=== PATIENT | female | born 1970 | race Caucasian/White ===

== ENCOUNTER 2016-09-03 12:35 | Emergency (ER) | payer MEDICARE, MEDICAID ==
[2016-09-03] MEDS ORDERED: Butalb/Acetamin/Caff TAB* 1 TAB PO ONE (13:20)
--- NOTE | 2016-09-03 13:29 | ED ---
Headache - HPI Summary HPI Summary: Patient presents for delayed evaluation of shaking episodes during sleep and subsequent R sided headache. noticed that each time she takes a sleep aid , that the patient swings her arms and then wakes up asking what happened. This occurred three times last night for nearly 1 to 2 minutes each. Last night she took Tylenol PM, but this also occurs with Ambien. Denies any other medication changes, well before work yesterday, played video games before bed, and laid to sleep peacefully. Normal behavior now but with mild to moderate, throbbing R sided headache and body pain. No allev factors attempted for either. - History Of Current Complaint Chief Complaint: EDSeizure Stated Complaint: SEIZURES Time Seen by Provider: 09/03/16 13:09 Hx Obtained From: Patient, Family/[employer] - Hx Last Menstrual Period: 04/08/16 Onset/Duration: Gradual Onset Timing: Intermittent, Lasting:, Seconds - Allergies/Home Medications Allergies/Adverse Reactions: Allergies Allergy/AdvReac Type Severity Reaction Status Date / Time Morphine Allergy Severe Anaphylatic Verified 03/06/16 19:07 Shock Pioglitazone [From Actos] Allergy Severe Anaphylatic Verified 03/06/16 19:07 Shock Zolpidem [From Ambien] Allergy Severe See Comment Verified 03/06/16 19:07 Cinnamon Allergy Unknown Verified 03/06/16 19:07 Reaction Details Codeine AdvReac Intermediate Vomiting Verified 03/06/16 19:07 Oxycodone AdvReac Dizziness Verified 03/06/16 19:07 Home Medications: Home Medications Ipratropium [place] (Nasal) [Ipratropium [place]] 0.06 % BOTH NARES TID PRN [History Confirmed 09/03/16] Liraglutide (NF) [Victoza (NF)] 1.2 mg SUBCUT DAILY 09/03/16 [History Confirmed 09/03/16] Magnesium Oxide TAB* [MagOx 400 TAB*] 400 mg PO DAILY 09/03/16 [History Confirmed 09/03/16] Pregabalin CAP(*) [Lyrica CAP(*)] 25 mg PO TID MDD 75 mg 09/03/16 [History Confirmed 09/03/16] Topiramate TAB(*) [Topamax 100 MG(*)] 100 mg PO BID 09/03/16 [History Confirmed 09/03/16] PMH/Surg Hx/FS Hx/Imm Hx Endocrine/Hematology History: Reports: Hx Diabetes - TYPE 2 Denies: Hx Anticoagulant Therapy, Hx Thyroid Disease Cardiovascular History: Reports: Hx Angina, Hx Hypertension - R/T Denies: Hx Congestive Heart Failure, Hx Pacemaker/ICD Respiratory History: Reports: Hx Asthma, Hx Chronic Obstructive Pulmonary Disease (COPD), Hx Sleep Apnea GI History: Reports: Other GI Disorders - has had GI bleed d/t hemorrhoids Denies: Hx Ulcer History: Reports: Other Problems/Disorders - ovarian cysts Denies: Hx Dialysis, Hx Renal Disease Musculoskeletal History: Reports: Hx Back Problems, Other Musculoskeletal History - OBESITY Denies: Hx Arthritis, Hx Osteoporosis Sensory History: Denies: Hx Hearing Aid Neurological History: Reports: Hx Migraine, Hx Seizures, Other Neuro Impairments /Disorders - HEAD INJURY, CONCUSSION X 2 Denies: Hx Dementia, Hx Developmental Delay, Hx Headaches, Hx Nerve Disease, Hx Spinal Cord Injury, Hx Transient Ischemic Attacks (TIA) Psychiatric History: Reports: Hx Depression, Hx Inpatient Treatment, Hx Community Mental Health Tx, Hx Suicide Attempt Denies: Hx Eating Disorder, Hx Panic Disorder, Hx of Violent Episodes Against Others, Hx Substance Abuse - Surgical History Surgery Procedure, Year, and Place: tubal ligation Hx Anesthesia Reactions: No - Immunization History Date of Tetanus Vaccine: 2013 Date of Influenza Vaccine: Fall 2012 Infectious Disease History: No Infectious Disease History: Denies: Hx Clostridium Difficile, Hx Hepatitis, Hx Human Immunodeficiency Virus (HIV), Hx of Known/Suspected MRSA, Hx Shingles, Hx Tuberculosis, Hx Known/ Suspected VRE, Hx Known/Suspected VRSA, History Other Infectious Disease, Traveled Outside the [place] in Last 30 Days - Family History Known Family History: Positive: None, Hypertension, Other - cancer - Social History Alcohol Use: Occasionally Hx Substance Use: No Substance Use Type: Reports: None Substance Use Comment - Amount & Last Used: norco 5/325 q4h prn Hx Tobacco Use: Yes Smoking Status (MU): Former Smoker Type: Cigarettes Amount Used/How Often: 1/2 PPD for 10 years Have You Smoked in the Last Year: No Review of Systems Negative: Fever, Chills Negative: Photophobia, Blurred Vision Cardiovascular: Negative Negative: Palpitations, Chest Pain Respiratory: Negative Negative: Shortness Of Breath, Cough Positive: Headache. Negative: Weakness, Paresthesia, Numbness, Slurred Speech All Other Systems Reviewed And Are Negative: Yes Physical Exam Triage Information Reviewed: Yes Vital Signs On Initial Exam: Initial Vitals Temp Pulse Resp BP Pulse Ox 98.4 F 76 16 132/80 100 09/03/16 12:40 09/03/16 12:40 09/03/16 12:40 09/03/16 12:40 09/03/16 12:40 Vital Signs Reviewed: Yes Appearance: Positive: Well-Appearing, No Pain Distress, Well-Nourished Skin: Positive: Warm, Skin Color Reflects Adequate Perfusion, Dry Head/Face: Positive: Normal Head/Face Inspection. Negative: Temporal Artery Tenderness, TMJ Tenderness, Cephalohematoma Eyes: Positive: Normal, EOMI ENT: Positive: Normal ENT inspection, Hearing grossly normal, Pharynx normal Neck: Positive: Supple Respiratory/Lung Sounds: Positive: Clear to Auscultation, Breath Sounds Present Cardiovascular: Positive: Normal, RRR, Pulses are Symmetrical in both Upper and Lower Extremities Abdomen Description: Positive: Nontender, No Organomegaly, Soft Musculoskeletal: Positive: Normal, Strength/ROM Intact Neurological: Positive: Normal, Sensory/Motor Intact, Alert, Oriented to Person Place, Time, CN Intact II-III, Reflexes Intact, Normal Gait, Heel to Toe, Finger to Nose, Facial Symmetry, Speech Normal. Negative: Cerebellar Dysfunction, Facial Droop, Focal Deficit @, Slurred Speech, Ataxic Gait, Dysarthric Aphasia, Pronator Drift Present Diagnostics - Vital Signs Vital Signs Temp Pulse Resp BP Pulse Ox 09/03/16 12:40 98.4 F 76 16 132/80 100 - Laboratory Lab Statement: Any lab studies that have been ordered have been reviewed, and results considered in the medical decision making process. - EKG No standard instances Cardiac Rate: NL EKG Rhythm: Sinus Rhythm ST Segment: Normal Ectopy: None EKG Comparison: No Significant Change - HR 65, normal AR/QRS/QTC Headache Course/Dx - Diagnoses Differential Diagnosis/HQI/PQRI: Subdural Hematoma, Subarachnoid Hemorrhage, Tension Headache, Other - Primary concern for myoclonic jerking during sleep. EKG to eval for medication induced arrhythmia. CT for occult ICH. although she complains of pain, none reproduced with active ROM of limbs, palpation of head, neck, chest, back, abdomen, hip, legs. Fioricet for headache. Nontoxic appearing. Low concern for seizure disorder, but will refer to Neurology for outpatient evaluation if deemed necessary by PCP. Provider Diagnoses: Headache Discharge - Discharge Plan Condition: Stable Disposition: HOME Prescriptions: Butalb/Acetamin/Caff TAB* [Fioricet TAB*] 1 tab PO Q6H PRN #10 tab MDD 8 tablets PRN Reason: Headache Patient Education Materials: General Headache (ED) Referrals: Jennifer Dietrich MD [Primary Care Provider] - Brooke Julien MD [Medical Doctor] -
--- NOTE | 2016-09-03 14:56 | RAD ---
HISTORY: Headache, seizure COMPARISONS: May 20, 2016 TECHNIQUE: Multiple contiguous axial CT scans were obtained of the head without intravenous contrast. FINDINGS: HEMORRHAGE/INFARCT: There is no hemorrhage or acute infarct. MASSES/SHIFT: There is no mass or shift. EXTRA-AXIAL SPACES: There are no extra-axial fluid collections. SULCI AND VENTRICLES: The sulci and ventricles are normal in size and position for the patient's stated age. CEREBRUM: There are no focal parenchymal abnormalities. BRAINSTEM: There are no focal parenchymal abnormalities. CEREBELLUM: There are no focal parenchymal abnormalities. VESSELS: The vessels are grossly normal. PARANASAL SINUSES: The paranasal sinuses are clear. ORBITS: The orbits are unremarkable. BONES AND SOFT TISSUE: No bone or soft tissue abnormalities are noted. OTHER: None IMPRESSION: NO ACUTE INTRACRANIAL PATHOLOGY.
[2016-09-03 15:32] VITALS: BP 107/56
== END 2016-09-03 15:31 | disposition home or self-care (01) ==
LOC: ED 12:35
DX: R51 Headache (principal); Z87.891 Personal history of nicotine dependence
CPT/HCPCS: 70450; 93005; 99283; A9270-GY

== ENCOUNTER 2017-04-13 17:06 | Emergency (ER) | payer MEDICAID, MEDICARE ==
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
--- NOTE | 2017-04-13 19:18 | RAD ---
INDICATION: Right rib injury. COMPARISON: Comparison is made with a prior chest x-ray study from April 21, 2016. TECHNIQUE: 4 views of the right ribs and dual-energy PA views of the chest were obtained. FINDINGS: No fracture or significant focal osseous abnormality is seen. The heart is within normal limits in size. The lungs are clear. There is no evidence for pneumothorax or pleural effusion. IMPRESSION: NO EVIDENCE FOR FRACTURE.
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
== END 2017-04-13 20:01 | disposition home or self-care (01) ==
LOC: UCEAST 17:06
DX: S60.221A Contusion of right hand, initial encounter (principal); Z88.6 Allergy status to analgesic agent; S20.219A Contusion of unspecified front wall of thorax, initial encounter; W22.8XXA Striking against or struck by other objects, initial encounter; Y92.9 Unspecified place or not applicable
CPT/HCPCS: 99213; G0463

== ENCOUNTER → 2017-05-14 09:59 | Emergency (ER) | payer SELFPAY ==
[~2017-05-14 09:59] MED LIST: HYDROmorphone INJ* 1 MG/ML CARPUJECT SYRINGE IV SLOW PU ONE; Magnesium Sulfate 2 GM IV* 2 GM/50 ML BAG IVPB ONE; NS 0.9% 1000 ML* 1,000 ML IV ONE; Ondansetron INJ* 2 MG/ML VIAL IV ONE
[2017-05-14 10:04] VITALS: BP 134/79
[2017-05-14 11:01] LABS: Hematocrit 37 % (35-47); Hemoglobin 12.4 g/dl (12.0-16.0); Mean Corpuscular HGB Conc 34 g/dl (31-36); Mean Corpuscular Hemoglobin 26 pg (27-31); Mean Corpuscular Volume 78 fL (80-97); Mean Platelet Volume 7 um3 (7.4-10.4); Red Blood Count 4.68 10^6/ul (4.0-5.4); Red Cell Distribution Width 15 % (10.5-15); White Blood Count 7.5 10^3/ul (3.5-10.8)
[2017-05-14 11:19] LABS: Urine Bilirubin Negative (Negative); Urine Glucose Negative (Negative); Urine Nitrite Negative (Negative)
[2017-05-14 11:30] LABS: Albumin 3.8 g/dL (3.2-5.2); BUN/Creatinine Ratio 24.6 (8-20); C Reactive Protein 4.67 mg/L (< 5.00); Calcium 9.1 mg/dL (8.6-10.3); EGFR African American 127.3 (>60); Globulin 2.7 g/dL (2-4); Magnesium 1.8 mg/dL (1.9-2.7); Potassium 3.7 mmol/L (3.5-5.0); Total Bilirubin 0.3 mg/dL (0.2-1.0); Total Protein 6.5 g/dL (6.4-8.9)
--- NOTE | 2017-05-17 09:05 | ED ---
Progress - Progress Note Progress Note: Pt's stool cxs are neg for enteric pathogens and shiga toxins. No change in plan at this time. F/u as directed in d/c. Course/Dx - Diagnoses Provider Diagnoses: Abdominal pain
== END | disposition home or self-care (01) ==
LOC: ED 09:59
DX: R10.9 Unspecified abdominal pain (principal)
CPT/HCPCS: 36415; 80053; 81003; 82272; 83605; 83630; 83690; 83735; 83986; 85025; 86140; 87045; 87046; 87077; 87899; 96374; 96375; 99283; J1170; J2405; J3475

== ENCOUNTER 2017-06-02 11:31 | Emergency (ER) | payer MEDICARE ==
--- NOTE | 2017-06-02 12:48 | RAD ---
HISTORY: Neck pain COMPARISONS: None relevant TECHNIQUE: Multiple contiguous axial CT scans were obtained of the cervical spine without intravenous contrast, with coronal and sagittal multiplanar reformations. FINDINGS: BRAIN: The visualized brain is unremarkable CENTRAL CANAL: Evaluation of the central canal is limited on CT technique; however, there is no obvious canalicular mass or epidural hemorrhage. ALIGNMENT: There is straightening of the cervical lordosis. VERTEBRAL BODIES: The odontoid process is intact. The atlantoaxial intervals are symmetric. The vertebral bodies are normal in attenuation, without fracture. Incidentally noted is a dysraphic defect of the posterior arch of C1. There is mild multilevel anterolateral marginal osteophyte formation. JOINTS: There is multilevel uncovertebral and facet osteoarthritis. There is mild osteoarthritis of the atlantoaxial articulation. MUSCULATURE: Unremarkable INTERVERTEBRAL DISCS: There is diffuse loss of intervertebral disc height. AXIAL IMAGES: C2-C3: There is mild left neural foraminal narrowing. There is no osseous central canal stenosis. C3-C4: There is moderate right neural foraminal narrowing. There is no osseous central canal stenosis. C4-C5: There is no osseous neural foraminal narrowing or central canal stenosis. C5-C6: There is no osseous neural foraminal narrowing or central canal stenosis. C6-C7: There is no osseous neural foraminal narrowing or central canal stenosis. C7-T1: There is no osseous neural foraminal narrowing or central canal stenosis. SOFT TISSUES: The visualized soft tissues of the neck are unremarkable. The prevertebral fat stripe is preserved. OTHER: None. IMPRESSION: 1. STRAIGHTENING OF THE CERVICAL LORDOSIS. 2. DEGENERATIVE DISC DISEASE AND OSTEOARTHRITIS. 3. THERE IS LEFT-SIDED NEURAL FORAMINAL NARROWING AT C2-C3 AND ON THE RIGHT AT C3-C4. THERE IS NO SIGNIFICANT OSSEOUS CENTRAL CANAL STENOSIS.
--- NOTE | 2017-06-02 12:54 | ED ---
Neck Pain - HPI Summary HPI Summary: 46 female presents to ED with complaints of acute neck pain that began yesterday while at work. Patient states it is in the back of her neck and right side. Radiates into arms, admits to tingling of fingers this morning, that has since resolved. Denies recent known trauma/injury. Denies stiffness/rigidity. Patient has been taking excedrin and iburprofen without relief, last dose this am around 630am. Patient states the pain has seemed to worsen today upon waking up. Pain worsens with movement, especially rotating to right. Also states it is causing her to have a migraine and nausea/vomiting. PMHx significant for migraines and diabetes. States migraines typically make her nauseous and vomit. Vomited a total of 3 times this morning. Admits to some photosensitivity. No fever/chills. Denies spasms. No other illness or symptoms. No other complaints. Denies abdominal pain, diarrhea, visual changes, fatigue and weakness. - History of Current Complaint Chief Complaint: EDNeckComplaint Stated Complaint: NECK PAIN,HEADACHE Time Seen by Provider: 06/02/17 12:00 Hx Obtained From: Patient Hx Last Menstrual Period: 04/08/16 Onset/Duration Of Injury/Symptoms: Days - 1 Mechanism Of Injury: No Known Trauma Timing: Constant Onset/Duration: Started days ago - yesterday, Still Present, Worse Since Severity Initially: Moderate Severity Currently: Moderate Pain Intensity: 8 Pain Scale Used: 0-10 Numeric Location: Discrete At: - cervical spine, right paraspinal muscle, Radiates To: - base of head and b/l upper extremities Aggravating Factors: Movement Alleviating Factors: Nothing, Other: - rest Associated Signs & Symptoms: Positive: Headache, Paresthesia - of fingers, resolved - Allergies/Home Medications Allergies/Adverse Reactions: Allergies Allergy/AdvReac Type Severity Reaction Status Date / Time Morphine Allergy Severe Anaphylatic Verified 04/13/17 17:34 Shock Pioglitazone [From Actos] Allergy Severe Anaphylatic Verified 04/13/17 17:34 Shock Zolpidem [From Ambien] Allergy Severe See Comment Verified 04/13/17 17:34 Cinnamon Allergy Unknown Verified 04/13/17 17:34 Reaction Details Codeine AdvReac Intermediate Vomiting Verified 04/13/17 17:34 Oxycodone AdvReac Dizziness Verified 04/13/17 17:34 PMH/Surg Hx/FS Hx/Imm Hx Endocrine/Hematology History: Reports: Hx Diabetes - TYPE 2 Denies: Hx Anticoagulant Therapy, Hx Thyroid Disease Cardiovascular History: Reports: Hx Angina, Hx Hypertension - R/T Denies: Hx Congestive Heart Failure, Hx Pacemaker/ICD Respiratory History: Reports: Hx Asthma, Hx Chronic Obstructive Pulmonary Disease (COPD), Hx Sleep Apnea GI History: Reports: Other GI Disorders - has had GI bleed d/t hemorrhoids Denies: Hx Ulcer History: Reports: Other Problems/Disorders - ovarian cysts Denies: Hx Dialysis, Hx Renal Disease Musculoskeletal History: Reports: Hx Back Problems, Other Musculoskeletal History - OBESITY Denies: Hx Arthritis, Hx Osteoporosis Sensory History: Denies: Hx Hearing Aid Neurological History: Reports: Hx Migraine, Hx Seizures, Other Neuro Impairments /Disorders - HEAD INJURY, CONCUSSION X 2 Denies: Hx Dementia, Hx Developmental Delay, Hx Headaches, Hx Nerve Disease, Hx Spinal Cord Injury, Hx Transient Ischemic Attacks (TIA) Psychiatric History: Reports: Hx Depression, Hx Inpatient Treatment, Hx Community Mental Health Tx, Hx Suicide Attempt Denies: Hx Eating Disorder, Hx Panic Disorder, Hx of Violent Episodes Against Others, Hx Substance Abuse - Surgical History Surgery Procedure, Year, and Place: tubal ligation. hysterectomy Hx Anesthesia Reactions: No - Immunization History Date of Tetanus Vaccine: 2013 Date of Influenza Vaccine: Fall 2012 Infectious Disease History: No Infectious Disease History: Denies: Hx Clostridium Difficile, Hx Hepatitis, Hx Human Immunodeficiency Virus (HIV), Hx of Known/Suspected MRSA, Hx Shingles, Hx Tuberculosis, Hx Known/ Suspected VRE, Hx Known/Suspected VRSA, History Other Infectious Disease, Traveled Outside the [place] in Last 30 Days - Family History Known Family History: Positive: Unknown - adopted - Social History Alcohol Use: None Hx Substance Use: No Substance Use Type: Reports: None Substance Use Comment - Amount & Last Used: norco 5/325 q4h prn Hx Tobacco Use: No Smoking Status (MU): Former Smoker Type: Cigarettes Amount Used/How Often: 1/2 PPD for 10 years Have You Smoked in the Last Year: No Review of Systems Constitutional: Negative Cardiovascular: Negative Respiratory: Negative Positive: Vomiting, Nausea Positive: Arthralgia, Myalgia - pain with movement Positive: Headache, Paresthesia - tingling in finger b/l All Other Systems Reviewed And Are Negative: Yes Physical Exam Triage Information Reviewed: Yes Vital Signs On Initial Exam: Initial Vitals Temp Pulse Resp BP Pulse Ox 98.4 F 86 20 123/75 98 06/02/17 11:42 06/02/17 11:42 06/02/17 11:42 06/02/17 11:42 06/02/17 11:42 Vital Signs Reviewed: Yes Appearance: Positive: Well-Appearing, No Pain Distress, Well-Nourished Skin: Positive: Warm, Skin Color Reflects Adequate Perfusion, Dry. Negative: Cold, Cyanosis @, Pale, Erythema @ Head/Face: Positive: Normal Head/Face Inspection Eyes: Positive: EOMI, THERESA, Conjunctiva Clear, Other: - no ptosis or miosis, no excessive tearing ENT: Positive: Hearing grossly normal, Pharynx normal, TMs normal Neck: Positive: Supple, No Lymphadenopathy, Tenderness @ - cervical spine and paraspinal right side muscles, Other: - negative kernig and brudinski, no sign of meningismus. Negative: Nuchal Rigidity Respiratory/Lung Sounds: Positive: Clear to Auscultation, Breath Sounds Present. Negative: Rales, Rhonchi, Wheezes Cardiovascular: Positive: Normal, Pulses are Symmetrical in both Upper and Lower Extremities - 2+ radial b/l, Other - no carotid bruits appreciated. Negative: Murmur, Rub Abdomen Description: Positive: Nontender, Soft Bowel Sounds: Positive: Present Musculoskeletal: Positive: Normal, Strength/ROM Intact. Negative: Limited @, Interruption @, Abnormal @, Pain @ Neurological: Positive: Normal - neuro exam normal, Sensory/Motor Intact - intact, Alert, Oriented to Person Place, Time, CN Intact II-III, Reflexes Intact , NV Bundle Intact Distally, Normal Gait, Heel to Toe, Finger to Nose - normal, Facial Symmetry, Speech Normal. Negative: Rhomberg - Da Coma Scale Best Eye Response: 4 - Spontaneous Best Motor Response: 6 - Obeys Commands Best Verbal Response: 5 - Oriented Diagnostics - Vital Signs Vital Signs Temp Pulse Resp BP Pulse Ox 06/02/17 11:42 98.4 F 86 20 123/75 98 - Laboratory Lab Statement: Any lab studies that have been ordered have been reviewed, and results considered in the medical decision making process. - CT cervical CT Interpretation: Positive (See Comments) - 1. STRAIGHTENING OF THE CERVICAL LORDOSIS. 2. DEGENERATIVE DISC DISEASE AND OSTEOARTHRITIS. 3. THERE IS LEFT- SIDED NEURAL FORAMINAL NARROWING AT C2-C3 AND ON THE RIGHT AT C3-C4. THERE IS NO SIGNIFICANT OSSEOUS CENTRAL CANAL STENOSIS. CT Interpretation Completed By: Radiologist Re-Evaluation - Re-Evaluation First Eval Re-Evaluation Time: 14:00 Change: Improved - had relief from medications, will continue at home. patient changing positions and moving neck around without difficulty Neck Course/Dx - Course Course Of Treatment: CT cervical spine obtained showing, osteoarthritis, cervical stenosis and straightening of spine. symptoms and imaging appears that patient is suffering from a cervical radiculopathy or cervical strain. no nuchal rigidity. negative kernig and brudinski. normal vitals. normal neuro exam. no high suscpicion or concern for other emergent etiology such as meningitis or encephalitis. migraine was typical for her, and she usually has nausea and vomiting associated with them. probable cause by neck pain. Rest, pain meds, muscle relaxer, heat. patient agrees and understands. aware of worsening signs and symptoms to watch out for. follow up with PCP tomorrow, at appointment. Recommended Physical therapy. zofran for nausea. increase fluid intake. - Diagnoses Differential Dx/HQI/PQRI: Positive: Strain, Other - radiculopathy Provider Diagnoses: Cervical radiculopathy, Neck pain, Migraine Discharge - Discharge Plan Condition: Stable Disposition: HOME Prescriptions: Cyclobenzaprine TAB* [Flexeril 10 MG TAB*] 10 mg PO BEDTIME #15 tab HYDROcodone/ACETAMIN 5-325 MG* [[place] 5-325 TAB*] 1 tab PO Q8H PRN #15 tab MDD 2 PRN Reason: Pain Ondansetron ODT TAB* [Zofran 4 MG Odt TAB*] 4 mg PO Q6H PRN #7 tab.odt PRN Reason: Nausea Patient Education Materials: Cervical Radiculopathy (ED), Acute Neck Pain (ED) Referrals: Jennifer Dietrich MD [Primary Care Provider] - Additional Instructions: Any new or worsening symptoms please seek medical attention as we discussed. Take prescribed medication as directed. do not take any NSAIDs (motrin, ibuprofen, aleve) until tomorrow. Muscle relaxer at bedtime. Zofran for nausea. Increase fluid intake. Follow up with PCP tomorrow, discuss physical therapy. Rest, apply heat and avoid use.
[2017-06-02] MEDS ORDERED: Orphenadrine Citrate IV* 30 MG/ML 2 ML VIAL IM ONE (13:05)
[2017-06-02] MEDS ORDERED: Ketorolac INJ* 30 MG/ML 1 ML VIAL IM ONE (13:05)
[2017-06-02] MEDS ORDERED: Ondansetron ODT TAB* 4 MG PO ONE (13:06)
[2017-06-02] MEDS ORDERED: HYDROcodone/ACETAMIN 5-325 MG* 1 TAB PO ONE (13:08)
[2017-06-02 14:41] VITALS: BP 145/89
== END 2017-06-02 14:40 | disposition home or self-care (01) ==
LOC: ED 11:31
DX: M54.12 Radiculopathy, cervical region (principal); G43.909 Migraine, unspecified, not intractable, without status migrainosus; R51 Headache; M54.2 Cervicalgia; R11.2 Nausea with vomiting, unspecified; Z87.891 Personal history of nicotine dependence
CPT/HCPCS: 72125; 96372; 99282; A9270-GY; J1885; J2360

== ENCOUNTER 2017-07-19 20:00 | Emergency (ER) | payer MEDICARE ==
[2017-07-19 22:29] LABS: ABS Basophils 0.1 10^3/ul (0-0.2); ABS Eosinophils 0.1 10^3/ul (0-0.6); ABS Lymphocytes 2.2 10^3/ul (1.0-4.8); ABS Monocytes 0.4 10^3/ul (0-0.8); ABS Neutrophils 4.8 10^3/ul (1.5-7.7); ABS Nucleated RBC 0.01 10^3/ul; Eosinophil % 1.1 % (0-6); Hematocrit 39 % (35-47); Hemoglobin 13.3 g/dl (12.0-16.0); Lymphocyte % 29.3 % (25-47); Mean Corpuscular HGB Conc 34 g/dl (31-36); Mean Corpuscular Hemoglobin 27 pg (27-31); Mean Corpuscular Volume 79 fL (80-97); Mean Platelet Volume 7 um3 (7.4-10.4); Nucleated Red Blood Cells % 0.1; Platelet Count 195 10^3/ul (150-450); Red Blood Count 4.94 10^6/ul (4.0-5.4); Red Cell Distribution Width 15 % (10.5-15); White Blood Count 7.6 10^3/ul (3.5-10.8)
--- NOTE | 2017-07-19 22:33 | RAD ---
INDICATION: Chest pressure and back pain COMPARISON: Chest x-ray dated April 21, 2016 TECHNIQUE: Single AP portable view of the chest was obtained. FINDINGS: Image quality is compromised due to the relative inferiority of a portable chest x-ray. The heart and mediastinum exhibit normal size and contour. The lungs are grossly clear. There is no evidence of a large pleural effusion. Visualized bones are normal for the patient's age. IMPRESSION: No radiographic evidence for acute cardiopulmonary abnormality on this portable chest x-ray.
[2017-07-19 22:36] LABS: INR 0.96 (0.77-1.02)
[2017-07-19 22:45] LABS: EGFR Non-African American 90.9 (>60)
[2017-07-19] MEDS ORDERED: Ketorolac INJ* 30 MG/ML 1 ML VIAL IV PUSH ONE (22:55)
[2017-07-19] MEDS ORDERED: Ketorolac INJ* 60 MG/2 ML VIAL ONE (23:10)
[2017-07-19 23:31] LABS: Urine Appearance Clear; Urine Blood Negative (Negative); Urine Color Yellow; Urine Ketones Negative (Negative); Urine Protein Negative (Negative); Urine Specific Gravity 1.011 (1.010-1.030); Urine Urobilinogen Negative (Negative)
--- NOTE | 2017-07-20 00:30 | ED ---
Complex/Multi-Sys Presentation - HPI Summary HPI Summary: Pt presents w/ 2 episodes of being found on the floor at 20:00 tonight. She last recalls eating dinner at 17:30pm and then upon "coming to" after 2nd questionable "fall"? Currently she has a VALDIVIA and pain from her neck down to the base of her tailbone. Denies change in vision, nausea, vomiting, fatigue, chest pain, shortness of breath. Reports her upper back hurts with deep breath and she has heaviness/pressure in front chest with deep breath. No abdominal pain and no pain in LE's however she reports Rt LE is numb - moving well and responds to touch. Denies change in bowel/bladder habits and was not found to be incontinent after "falls" earlier tonight. Her reports pt was upset that company was at their house and pt went into her room to go to bed. reports she went to check on pt because pt was screaming from the other room and on the floor - partner reports she was agitated because she wanted the company to leave, not fatigued or post ictal as pt does have a h/o seizures - takes topamax for years now. This happened (falling onto floor with yelling) once more and ambulance was called. Pt reports she was able to stand with assistance to get into a chair and then onto a stretcher. No pain w/ standing/ weight bearing. NOTE: she's been in PT for cervical pain - feels it's worse since. Takes gabapentin and skelaxin. Tolerates these well. NOTE: just started Januvia this month in addition to metformin. - History Of Current Complaint Chief Complaint: EDBackInjuryPain Time Seen by Provider: 07/19/17 21:27 Hx Obtained From: Patient, Family/Rotating Equipment Engineer - - Allergies/Home Medications Allergies/Adverse Reactions: Allergies Allergy/AdvReac Type Severity Reaction Status Date / Time Morphine Allergy Severe Anaphylatic Verified 04/13/17 17:34 Shock Pioglitazone [From Actos] Allergy Severe Anaphylatic Verified 04/13/17 17:34 Shock Zolpidem [From Ambien] Allergy Severe See Comment Verified 04/13/17 17:34 Cinnamon Allergy Unknown Verified 04/13/17 17:34 Reaction Details Codeine AdvReac Intermediate Vomiting Verified 04/13/17 17:34 Oxycodone AdvReac Dizziness Verified 04/13/17 17:34 PMH/Surg Hx/FS Hx/Imm Hx Previously Healthy: Yes Endocrine/Hematology History: Reports: Hx Diabetes - TYPE 2 - metformin, recently started januvia Denies: Hx Anticoagulant Therapy, Hx Thyroid Disease Cardiovascular History: Reports: Hx Angina, Hx Hypertension - R/T Denies: Hx Atrial Fibrillation, Hx Congestive Heart Failure, Hx Deep Vein Thrombosis, Hx Hypotension, Hx Myocardial Infarction, Hx Pacemaker/ICD, Hx Valvular Heart Disease Respiratory History: Reports: Hx Asthma, Hx Chronic Obstructive Pulmonary Disease (COPD), Hx Sleep Apnea Denies: Hx Pleural Effusion, Hx Pulmonary Edema, Hx Pulmonary Embolism GI History: Reports: Other GI Disorders - has had GI bleed d/t hemorrhoids Denies: Hx Ulcer History: Reports: Other Problems/Disorders - ovarian cysts Denies: Hx Dialysis, Hx Renal Disease Musculoskeletal History: Reports: Hx Back Problems - cervical arthritis, Other Musculoskeletal History - OBESITY Denies: Hx Arthritis, Hx Osteoporosis Sensory History: Denies: Hx Hearing Aid Neurological History: Reports: Hx Migraine, Hx Seizures, Other Neuro Impairments /Disorders - HEAD INJURY, CONCUSSION X 2 Denies: Hx Dementia, Hx Developmental Delay, Hx Headaches, Hx Nerve Disease, Hx Spinal Cord Injury, Hx Transient Ischemic Attacks (TIA) Psychiatric History: Reports: Hx Depression, Hx Inpatient Treatment, Hx Community Mental Health Tx, Hx Suicide Attempt Denies: Hx Eating Disorder, Hx Panic Disorder, Hx of Violent Episodes Against Others, Hx Substance Abuse - Surgical History Surgery Procedure, Year, and Place: tubal ligation. hysterectomy Hx Anesthesia Reactions: No - Immunization History Date of Tetanus Vaccine: 2013 Date of Influenza Vaccine: Fall 2012 Infectious Disease History: No Infectious Disease History: Denies: Hx Clostridium Difficile, Hx Hepatitis, Hx Human Immunodeficiency Virus (HIV), Hx of Known/Suspected MRSA, Hx Shingles, Hx Tuberculosis, Hx Known/ Suspected VRE, Hx Known/Suspected VRSA, History Other Infectious Disease, Traveled Outside the [place] in Last 30 Days - Family History Known Family History: Positive: Unknown - adopted - Social History Occupation: Employed Full-time - [employer] Lives: With Family - Alcohol Use: None Hx Substance Use: No Substance Use Type: Reports: None Substance Use Comment - Amount & Last Used: rx'd norco 5/325 q4h prn chronic pain Hx Tobacco Use: No Smoking Status (MU): Former Smoker Type: Cigarettes Amount Used/How Often: 1/2 PPD for 10 years Have You Smoked in the Last Year: No Review of Systems Constitutional: Negative Negative: Fever, Chills, Fatigue Positive: Photophobia - mild. Negative: Blurred Vision, Diplopia, Drainage, Erythema ENT: Negative Negative: Epistaxis, Dental Pain, Sore Throat, Ear Ache, Nasal Discharge Positive: Chest Pain - as in HPI. Negative: Palpitations Respiratory: Negative Negative: Shortness Of Breath, Cough Gastrointestinal: Negative Negative: Abdominal Pain, Vomiting, Diarrhea, Nausea Positive: no symptoms reported Positive: Arthralgia, Myalgia Skin: Negative Positive: Headache, Paresthesia - Rt LE Positive: Anxious - concerned All Other Systems Reviewed And Are Negative: Yes Physical Exam Triage Information Reviewed: Yes Vital Signs On Initial Exam: Initial Vitals Temp Pulse Resp BP Pulse Ox 99.2 F 77 20 121/83 98 07/19/17 20:05 07/19/17 20:05 07/19/17 20:05 07/19/17 20:05 07/19/17 20:05 Vital Signs Reviewed: Yes Appearance: Positive: Well-Nourished, Pain Distress - lying on her side on stretcher w/ lights out - is present w/ her Skin: Positive: Warm, Skin Color Reflects Adequate Perfusion, Dry - no ecchymosis or erythema over affected areas; no signs of trauma from a fall Head/Face: Positive: Normal Head/Face Inspection - no signs of trauma, NTTP Eyes: Positive: Normal, EOMI, THERESA - mild photophobia ENT: Positive: Normal ENT inspection, Hearing grossly normal, Pharynx normal - no signs of trauma, TMs normal - no hemotympanum. Negative: Nasal drainage, Muffled voice, Hoarse voice Dental: Negative: Dental Fracture @ Neck: Positive: Supple, Tenderness @ - paracervical region Respiratory/Lung Sounds: Positive: Clear to Auscultation, Breath Sounds Present. Negative: Rales, Rhonchi, Subcutaneous Emphysema, Stridor, Tracheal Deviation, Wheezes, Unable to speak in full sentences, Fatigue Cardiovascular: Positive: Normal, RRR, Pulses are Symmetrical in both Upper and Lower Extremities, S1, S2. Negative: Murmur, Rub, Leg Edema Left - (-) Josiah's signs B/L, Leg Edema Right Abdomen Description: Positive: Nontender, No Organomegaly, Soft Bowel Sounds: Positive: Present Musculoskeletal: Positive: Strength/ROM Intact - extremities moving well and strength equal B/L, Pain @ - back TTP; no hematomas, erythema, ecchymosis Neurological: Positive: Normal, Sensory/Motor Intact - pt can feel gross touch in affected LE and is moving B/L LE's equally, Alert, Oriented to Person Place, Time, CN Intact II-III, Normal Gait, Facial Symmetry, Speech Normal. Negative: Pronator Drift Present Psychiatric: Positive: Anxious - [place] Coma Scale Coma Scale Total: 15 Diagnostics - Vital Signs Vital Signs Temp Pulse Resp BP Pulse Ox 07/19/17 22:00 70 17 101/73 97 07/19/17 21:30 68 11 105/77 98 07/19/17 21:00 69 13 104/78 97 07/19/17 20:30 72 18 105/74 98 07/19/17 20:11 76 11 98 07/19/17 20:09 121/83 07/19/17 20:05 99.2 F 77 20 121/83 98 - Laboratory Lab Results: Lab Results 07/19/17 07/19/17 07/19/17 Range/Units 22:14 22:14 22:14 WBC 7.6 (3.5-10.8) 10^3/ul RBC 4.94 (4.0-5.4) 10^6/ul Hgb 13.3 (12.0-16.0) g/dl Hct 39 (35-47) % MCV 79 L (80-97) fL MCH 27 (27-31) pg MCHC 34 (31-36) g/dl RDW 15 (10.5-15) % Plt Count 195 (150-450) 10^3/ul MPV 7 L (7.4-10.4) um3 Neut % (Auto) 63.5 (38-83) % Lymph % (Auto) 29.3 (25-47) % [place] % (Auto) 5.4 (1-9) % Eos % (Auto) 1.1 (0-6) % Baso % (Auto) 0.7 (0-2) % Absolute Neuts (auto) 4.8 (1.5-7.7) 10^3/ul Absolute Lymphs (auto) 2.2 (1.0-4.8) 10^3/ul Absolute Monos (auto) 0.4 (0-0.8) 10^3/ul Absolute Eos (auto) 0.1 (0-0.6) 10^3/ul Absolute Basos (auto) 0.1 (0-0.2) 10^3/ul Absolute Nucleated RBC 0.01 10^3/ul Nucleated RBC % 0.1 INR (Anticoag Therapy) 0.96 (0.77-1.02) Sodium 134 (133-145) mmol/L Potassium 3.5 (3.5-5.0) mmol/L Chloride 106 (101-111) mmol/L Carbon Dioxide 22 (22-32) mmol/L Anion Gap 6 (2-11) mmol/L BUN 13 (6-24) mg/dL Creatinine 0.70 (0.51-0.95) mg/dL Est GFR ( Amer) 116.9 (>60) Est GFR (Non-Af Amer) 90.9 (>60) BUN/Creatinine Ratio 18.6 (8-20) Glucose 140 H (70-100) mg/dL Lactic Acid (0.5-2.0) mmol/L Calcium 8.8 (8.6-10.3) mg/dL Magnesium 1.9 (1.9-2.7) mg/dL Total Bilirubin 0.50 (0.2-1.0) mg/dL AST 11 L (13-39) U/L ALT 11 (7-52) U/L Alkaline Phosphatase 60 (34-104) U/L Total Protein 6.4 (6.4-8.9) g/dL Albumin 3.8 (3.2-5.2) g/dL Globulin 2.6 (2-4) g/dL Albumin/Globulin Ratio 1.5 (1-3) Urine Color Urine Appearance Urine pH (5-9) Ur Specific [place] (1.010-1.030) Urine Protein (Negative) Urine Ketones (Negative) Urine Blood (Negative) Urine Nitrate (Negative) Urine Bilirubin (Negative) Urine Urobilinogen (Negative) Ur Leukocyte Esterase (Negative) Urine WBC (Auto) (Absent) Urine RBC (Auto) (Absent) Ur Squamous Epith Cells (Absent) Urine Bacteria (Absent) Urine Glucose (Negative) Urine Opiates Screen (None Detect) Ur Barbiturates Screen (None Detect) Ur Phencyclidine Scrn (None Detect) Ur Amphetamines Screen (None Detect) U Benzodiazepines Scrn (None Detect) Urine Cocaine Screen (None Detect) U Cannabinoids Screen (None Detect) Serum Alcohol < 10 (<10) mg/dL 07/19/17 07/19/17 07/19/17 Range/Units 22:14 23:10 23:10 WBC (3.5-10.8) 10^3/ul RBC (4.0-5.4) 10^6/ul Hgb (12.0-16.0) g/dl Hct (35-47) % MCV (80-97) fL MCH (27-31) pg MCHC (31-36) g/dl RDW (10.5-15) % Plt Count (150-450) 10^3/ul MPV (7.4-10.4) um3 Neut % (Auto) (38-83) % Lymph % (Auto) (25-47) % [place] % (Auto) (1-9) % Eos % (Auto) (0-6) % Baso % (Auto) (0-2) % Absolute Neuts (auto) (1.5-7.7) 10^3/ul Absolute Lymphs (auto) (1.0-4.8) 10^3/ul Absolute Monos (auto) (0-0.8) 10^3/ul Absolute Eos (auto) (0-0.6) 10^3/ul Absolute Basos (auto) (0-0.2) 10^3/ul Absolute Nucleated RBC 10^3/ul Nucleated RBC % INR (Anticoag Therapy) (0.77-1.02) Sodium (133-145) mmol/L Potassium (3.5-5.0) mmol/L Chloride (101-111) mmol/L Carbon Dioxide (22-32) mmol/L Anion Gap (2-11) mmol/L BUN (6-24) mg/dL Creatinine (0.51-0.95) mg/dL Est GFR ( Amer) (>60) Est GFR (Non-Af Amer) (>60) BUN/Creatinine Ratio (8-20) Glucose (70-100) mg/dL Lactic Acid 1.0 (0.5-2.0) mmol/L Calcium (8.6-10.3) mg/dL Magnesium (1.9-2.7) mg/dL Total Bilirubin (0.2-1.0) mg/dL AST (13-39) U/L ALT (7-52) U/L Alkaline Phosphatase (34-104) U/L Total Protein (6.4-8.9) g/dL Albumin (3.2-5.2) g/dL Globulin (2-4) g/dL Albumin/Globulin Ratio (1-3) Urine Color Yellow Urine Appearance Clear Urine pH 8.0 (5-9) Ur Specific [place] 1.011 (1.010-1.030) Urine Protein Negative (Negative) Urine Ketones Negative (Negative) Urine Blood Negative (Negative) Urine Nitrate Negative (Negative) Urine Bilirubin Negative (Negative) Urine Urobilinogen Negative (Negative) Ur Leukocyte Esterase 3+ H (Negative) Urine WBC (Auto) Trace(0-5/hpf) (Absent) Urine RBC (Auto) Trace(0-2/hpf) (Absent) Ur Squamous Epith Cells Present H (Absent) Urine Bacteria Absent (Absent) Urine Glucose Negative (Negative) Urine Opiates Screen None detected (None Detect) Ur Barbiturates Screen None detected (None Detect) Ur Phencyclidine Scrn None detected (None Detect) Ur Amphetamines Screen None detected (None Detect) U Benzodiazepines Scrn None detected (None Detect) Urine Cocaine Screen None detected (None Detect) U Cannabinoids Screen None detected (None Detect) Serum Alcohol (<10) mg/dL Result Diagrams: 07/19/17 22:14 07/19/17 22:14 Lab Statement: Any lab studies that have been ordered have been reviewed, and results considered in the medical decision making process. Re-Evaluation - Re-Evaluation First Eval Change: Improved - mild improvement w/ toradol - will provide acetaminophen and she will take personal skelaxin when she gets home Complex Multi-Symp Course/Dx Course Of Treatment: Pt presents w/ a period of amnesia earlier tonight. Description of events by partner and pt do not sound impressive for seizure or stroke. She seems to be having acute on chronic KWESI pain w/ VALDIVIA. Labs and imaging are unremarkable for life threatening pathology. Discussed supportive care and close monitoring in the event sx return - return to ED. Could have complex migraine. Pt and agree w/ plan. Offered out of work tomorrow but pt reports she wants to go - shift starts at 14:00 - plans to sleep until then and denies lifting at work. NOTE: we discussed that her new medication Januvia can have side effects of severe arthralgia and VALDIVIA. If she had taken this medication along with metformin and not eaten dinner, these episodes could also have been in part due to hypoglycemia. She will stop januvia until f/u w/ PCP which I strongly urged to have this week. Pt agrees w/ plan. - Diagnoses Provider Diagnoses: Back pain, Headache Discharge - Discharge Plan Condition: Stable Disposition: HOME Patient Education Materials: Acute Headache (ED), Arthralgia (ED) Referrals: Jennifer Dietrich MD [Primary Care Provider] - Additional Instructions: Rest, hydrate and stay nourished Alternate heat and ice over areas of soreness along with gentle stretches. You may take pain medications as directed. Follow-up with PCP this week - you have expressed you have an appointment on July 22 - please update staff of your recent visit here as well. Discuss possible side effects of new medications triggering symptoms (ie. Januvia). *If you develop return of headache, change in vision, weakness, numbness, slurred speech, facial droop, lethargy, syncope, return to ED
[2017-07-20] MEDS ORDERED: Acetaminophen TAB* 325 MG PO ONE (01:17)
[2017-07-20 01:50] VITALS: BP 109/64
--- NOTE | 2017-07-20 08:07 | RAD ---
Indication: Fall; headache, amnesia. Comparison: September 03, 2016 Technique: Noncontrast CT vertex of skull through foramen magnum. Report: The sulci, ventricles, and basal cisterns are normal for age. Escobar matter white matter differentiation is preserved without evidence for edema. No intra or extra axial hemorrhage, mass, or fluid collection detected. Unremarkable visualized orbital contents. Unremarkable calvarium and skull base. Unremarkable scalp. The visualized paranasal sinuses and mastoid air spaces are clear. IMPRESSION: No CT evidence for traumatic brain injury. Negative exam.
--- NOTE | 2017-07-20 08:11 | RAD ---
INDICATION: Neck pain post fall. COMPARISON: June 02, 2017 CT. TECHNIQUE: Multidetector CT images foramen magnum to lung apices without contrast. Multiplanar reformation. REPORT: Normal vertebral alignment accounting for exam positioning without spondylolisthesis or subluxation at any level. Negative for cervical vertebral body or posterior element fracture. Negative for paravertebral hematoma. Mild degenerative spondylosis with dominant anterior osteophytosis most prominent at C6-C7 and C7-T1. Multilevel facet joint osteoarthritis most prominent at C2-C3 and C3-C4. Facet joint osteoarthritis results in moderate RIGHT foraminal stenosis at C3-C4 without significant change. IMPRESSION: No evidence for traumatic cervical spine injury. Negative for significant progression of degenerative spondylosis and facet joint osteoarthritis.
== END 2017-07-20 01:51 | disposition home or self-care (01) ==
LOC: ED 20:00
DX: M54.9 Dorsalgia, unspecified (principal); R51 Headache; R07.9 Chest pain, unspecified
CPT/HCPCS: 36415; 70450; 71010; 72125; 80053; 80307; 80320; 81003; 81015; 83605; 83735; 85025; 85610; 87086; 87502; 93005; 96374; 96375; 99283; G0480; J1885

== ENCOUNTER 2017-08-18 17:12 | Emergency (ER) | payer MEDICARE ==
[2017-08-18 20:38] LABS: ABS Basophils 0 10^3/ul (0-0.2); ABS Eosinophils 0.2 10^3/ul (0-0.6); ABS Lymphocytes 2.2 10^3/ul (1.0-4.8); ABS Monocytes 0.4 10^3/ul (0-0.8); ABS Neutrophils 3.4 10^3/ul (1.5-7.7); ABS Nucleated RBC 0 10^3/ul; Eosinophil % 2.8 % (0-6); Hematocrit 42 % (35-47); Lymphocyte % 35.5 % (25-47); Mean Corpuscular HGB Conc 33 g/dl (31-36); Mean Corpuscular Hemoglobin 27 pg (27-31); Mean Corpuscular Volume 81 fL (80-97); Mean Platelet Volume 7 um3 (7.4-10.4); Nucleated Red Blood Cells % 0.1; Platelet Count 207 10^3/ul (150-450); Red Blood Count 5.18 10^6/ul (4.0-5.4); Red Cell Distribution Width 15 % (10.5-15); White Blood Count 6.2 10^3/ul (3.5-10.8)
[2017-08-18 20:59] LABS: EGFR Non-African American 85.3 (>60)
[2017-08-18] MEDS ORDERED: HYDROmorphone INJ* 2 MG/ML CARPUJECT SYRINGE IV SLOW PU ONE (23:18)
[2017-08-18] MEDS ORDERED: Ondansetron INJ* 2 MG/ML VIAL IV ONE (23:18)
[2017-08-19 01:16] LABS: Urine Appearance Cloudy; Urine Blood Negative (Negative); Urine Color Yellow; Urine Ketones Negative (Negative); Urine Protein Negative (Negative); Urine Specific Gravity 1.019 (1.010-1.030); Urine Urobilinogen Negative (Negative)
[2017-08-19] MEDS ORDERED: Iodixanol* (CONTRAST) 320 MG/ML 100 ML SDV IV ONE (02:08)
[2017-08-19] MEDS ORDERED: Levofloxacin TAB* 500 MG PO ONE (05:15)
[2017-08-19 05:26] VITALS: BP 103/62
--- NOTE | 2017-08-19 05:26 | ED ---
Terrance Guajardo Thomas, scribed for Vincent Banerjee on 08/18/17 at 2317 . Abdominal Pain/Female - HPI Summary HPI Summary: The patient is a 46 year old female presenting to the emergency department complaining of abdominal distention and upper abdominal pain that began yesterday. She has not been passing gas. Past medical history includes hernia and hysterectomy. The patient additionally complains of nausea. The patient denies vomiting and diarrhea. - History of Current Complaint Chief Complaint: EDAbdPain Stated Complaint: ABD PAIN Time Seen by Provider: 08/18/17 23:04 Hx Obtained From: Patient Hx Last Menstrual Period: 04/08/16 Onset/Duration: Lasting Days - 1, Still Present Timing: Constant Severity Currently: Severe Pain Intensity: 7 Pain Scale Used: 0-10 Numeric Location: Other - distention, upper abdominal pain Radiates: No Aggravating Factor(s): Nothing Alleviating Factor(s): Nothing Associated Signs and Symptoms: Positive: Nausea. Negative: Fever, Vomiting, Diarrhea Allergies/Adverse Reactions: Allergies Allergy/AdvReac Type Severity Reaction Status Date / Time MS Morphine [Morphine] Allergy Severe Anaphylatic Verified 04/13/17 17:34 Shock MS Pioglitazone [From Actos] Allergy Severe Anaphylatic Verified 04/13/17 17:34 Shock MS Zolpidem [From Ambien] Allergy Severe See Comment Verified 04/13/17 17:34 MS Cinnamon [Cinnamon] Allergy Unknown Verified 04/13/17 17:34 Reaction Details MS Codeine [Codeine] AdvReac Intermediate Vomiting Verified 04/13/17 17:34 MS Oxycodone [Oxycodone] AdvReac Dizziness Verified 04/13/17 17:34 PMH/Surg Hx/FS Hx/Imm Hx Endocrine/Hematology History: Reports: Hx Diabetes - TYPE 2 - metformin, recently started januvia Denies: Hx Anticoagulant Therapy, Hx Thyroid Disease Cardiovascular History: Reports: Hx Angina, Hx Hypertension - R/T Denies: Hx Atrial Fibrillation, Hx Congestive Heart Failure, Hx Deep Vein Thrombosis, Hx Hypotension, Hx Myocardial Infarction, Hx Pacemaker/ICD, Hx Valvular Heart Disease Respiratory History: Reports: Hx Asthma, Hx Chronic Obstructive Pulmonary Disease (COPD), Hx Sleep Apnea Denies: Hx Pleural Effusion, Hx Pulmonary Edema, Hx Pulmonary Embolism GI History: Reports: Other GI Disorders - has had GI bleed d/t hemorrhoids Denies: Hx Ulcer History: Reports: Other Problems/Disorders - ovarian cysts Denies: Hx Dialysis, Hx Renal Disease Musculoskeletal History: Reports: Hx Back Problems - cervical arthritis, Other Musculoskeletal History - OBESITY Denies: Hx Arthritis, Hx Osteoporosis Sensory History: Denies: Hx Hearing Aid Neurological History: Reports: Hx Migraine, Hx Seizures, Other Neuro Impairments /Disorders - HEAD INJURY, CONCUSSION X 2 Denies: Hx Dementia, Hx Developmental Delay, Hx Headaches, Hx Nerve Disease, Hx Spinal Cord Injury, Hx Transient Ischemic Attacks (TIA) Psychiatric History: Reports: Hx Depression, Hx Inpatient Treatment, Hx Community Mental Health Tx, Hx Suicide Attempt Denies: Hx Eating Disorder, Hx Panic Disorder, Hx of Violent Episodes Against Others, Hx Substance Abuse - Surgical History Surgery Procedure, Year, and Place: tubal ligation. hysterectomy Hx Anesthesia Reactions: No - Immunization History Date of Tetanus Vaccine: 2013 Date of Influenza Vaccine: Fall 2012 Infectious Disease History: No Infectious Disease History: Denies: Hx Clostridium Difficile, Hx Hepatitis, Hx Human Immunodeficiency Virus (HIV), Hx of Known/Suspected MRSA, Hx Shingles, Hx Tuberculosis, Hx Known/ Suspected VRE, Hx Known/Suspected VRSA, History Other Infectious Disease, Traveled Outside the [place] in Last 30 Days - Family History Known Family History: Positive: Unknown - Patient is adopted, so family history is unknown - Social History Alcohol Use: None Hx Substance Use: No Substance Use Type: Reports: None Substance Use Comment - Amount & Last Used: rx'd norco 5/325 q4h prn chronic pain Hx Tobacco Use: No Smoking Status (MU): Former Smoker Type: Cigarettes Amount Used/How Often: 1/2 PPD for 10 years Have You Smoked in the Last Year: No Review of Systems Negative: Fever Positive: Abdominal Pain, Nausea, Other - Abd distention. Negative: Vomiting, Diarrhea All Other Systems Reviewed And Are Negative: Yes Physical Exam - Summary Physical Exam Summary: Appearance: Well appearing, no pain distress Skin: warm, dry, reflects adequate perfusion Head/face: normal Eyes: EOMI, THERESA ENT: normal Neck: supple, non-tender Respiratory: CTA, breath sounds present Cardiovascular: RRR, pulses symmetrical Abdomen: Soft. Diffuse tenderness. Bowel: present Musculoskeletal: normal, strength/ROM intact Neuro: normal, sensory motor intact, A&Ox3 Triage Information Reviewed: Yes Vital Signs On Initial Exam: Initial Vitals Temp Pulse Resp BP Pulse Ox 98.0 F 66 20 112/68 100 08/18/17 17:15 08/18/17 17:15 08/18/17 17:15 08/18/17 17:15 08/18/17 17:15 Vital Signs Reviewed: Yes Diagnostics - Vital Signs Vital Signs Temp Pulse Resp BP Pulse Ox 08/18/17 21:31 97.9 F 65 14 130/75 100 08/18/17 19:20 97.6 F 71 16 123/73 99 08/18/17 17:15 98.0 F 66 20 112/68 100 - Laboratory Lab Results: Lab Results 08/18/17 08/18/17 08/18/17 Range/Units 20:23 20:23 20:23 WBC 6.2 (3.5-10.8) 10^3/ul RBC 5.18 (4.0-5.4) 10^6/ul Hgb 14.0 (12.0-16.0) g/dl Hct 42 (35-47) % MCV 81 (80-97) fL MCH 27 (27-31) pg MCHC 33 (31-36) g/dl RDW 15 (10.5-15) % Plt Count 207 (150-450) 10^3/ul MPV 7 L (7.4-10.4) um3 Neut % (Auto) 55.1 (38-83) % Lymph % (Auto) 35.5 (25-47) % [place] % (Auto) 6.2 (1-9) % Eos % (Auto) 2.8 (0-6) % Baso % (Auto) 0.4 (0-2) % Absolute Neuts (auto) 3.4 (1.5-7.7) 10^3/ul Absolute Lymphs (auto) 2.2 (1.0-4.8) 10^3/ul Absolute Monos (auto) 0.4 (0-0.8) 10^3/ul Absolute Eos (auto) 0.2 (0-0.6) 10^3/ul Absolute Basos (auto) 0 (0-0.2) 10^3/ul Absolute Nucleated RBC 0 10^3/ul Nucleated RBC % 0.1 Sodium 138 (133-145) mmol/L Potassium 3.7 (3.5-5.0) mmol/L Chloride 108 (101-111) mmol/L Carbon Dioxide 24 (22-32) mmol/L Anion Gap 6 (2-11) mmol/L BUN 14 (6-24) mg/dL Creatinine 0.74 (0.51-0.95) mg/dL Est GFR ( Amer) 109.6 (>60) Est GFR (Non-Af Amer) 85.3 (>60) BUN/Creatinine Ratio 18.9 (8-20) Glucose 107 H (70-100) mg/dL Lactic Acid 1.2 (0.5-2.0) mmol/L Calcium 9.0 (8.6-10.3) mg/dL Total Bilirubin 0.50 (0.2-1.0) mg/dL AST 13 (13-39) U/L ALT 14 (7-52) U/L Alkaline Phosphatase 76 (34-104) U/L Troponin I 0.00 (<0.04) ng/mL C-Reactive Protein 2.79 (< 5.00) mg/L Total Protein 7.2 (6.4-8.9) g/dL Albumin 4.3 (3.2-5.2) g/dL Globulin 2.9 (2-4) g/dL Albumin/Globulin Ratio 1.5 (1-3) Lipase 31 (11.0-82.0) U/L Beta HCG, Quant < 0.60 mIU/mL Result Diagrams: 08/18/17 20:23 08/18/17 20:23 Lab Statement: Any lab studies that have been ordered have been reviewed, and results considered in the medical decision making process. - CT CT Abd/Pel CT Interpretation: No Acute Changes - CT Abd/Pel shows No diverticulosis or acute diverticulitis. No bowel obstruction, colitis, free fluid or free air. Normal appendix. Unremarkable pancreas, kidneys, and gallbladder. Minimal splenomegaly. 3.2 cm left ovarian cyst appearing since 02/22/16. Interval hysterectomy. Small umbilical and bilateral inguinal region hernias containing fat. Dr. Banerjee has reviewed this report. CT Interpretation Completed By: Radiologist - Additional Comments Diagnostic Additional Comments: Pelvic Ultrasound. Interpreted by radiologist. Impression: No left ovarian torsion. Color flow with venous waveforms. 2.7 cm left ovarian cyst. Uterus and right ovary not seen, compatible with history of hysterectomy and right oophorectomy. No free fluid. Unremarkable visualized portion of the bladder. Dr. Banerjee has reviewed this report. Abdominal Pain Fem Course/Dx - Course Course Of Treatment: The patient is a 46 year old female complaining of abdominal distention and upper abdominal pain that began yesterday. She has not been passing gas and she has diffuse tenderness. In the ED course the patient was given Dilaudid and Zofran. Bloodwork and urinalysis were obtained. CT Abd/ Pel and Pelvic Ultrasound were obtained. The patient is diagnosed with UTI and will be discharged home with primary care follow up. - Diagnoses Differential Diagnosis: Positive: Appendicitis, Diverticulitis, Ovarian Cyst, Renal Colic, Urinary Tract Infection Provider Diagnoses: UTI (urinary tract infection), Ovarian cyst Discharge - Discharge Plan Condition: Stable Disposition: HOME Prescriptions: Levofloxacin TAB* [Levaquin TAB*] 500 mg PO DAILY #4 tab Patient Education Materials: Urinary Tract Infection in Women (ED) Referrals: Jennifer Dietrich MD [Primary Care Provider] - 3 Days Additional Instructions: Follow up with your primary care physician in three days. Return to the emergency department for any new or worsening symptoms. The documentation as recorded by the Terrance thacker Thomas accurately reflects the service I personally performed and the decisions made by Chriss fish Emmanuel.
--- NOTE | 2017-08-19 08:02 | RAD ---
INDICATION: Left-sided pelvic pain. Relevant surgical history includes hysterectomy and right oopherectomy. COMPARISON: Pelvic ultrasound May 19, 2017 TECHNIQUE: Real-time transabdominal and transvaginal ultrasound examination of the female pelvis including grayscale and Doppler color flow imaging. FINDINGS: Uterus: Surgically absent. Ovaries: The left ovary measures 3.7 x 2.5 x 3.4 cm. Within the left ovary there is an anechoic and avascular structure measuring 2.7 x 2.2 x 2.7 cm most consistent with an ovarian follicle in a premenopausal age woman. Normal arterial and venous waveforms are identified. There is no free fluid in the cul-de-sac. IMPRESSION: The anechoic and avascular structure in the left ovary is most consistent with a dominant follicle in this premenopausal age woman. Sonographic findings are otherwise nonacute and consistent with the surgical history.
--- NOTE | 2017-08-19 08:08 | RAD ---
CLINICAL HISTORY: Abdominal pain. Relevant surgical history includes hysterectomy and right oopherectomy. COMPARISON: Multiple prior CT scans, most recently dated February 22, 2016 TECHNIQUE: Contrast enhanced CT examination of the abdomen and pelvis from the lung bases through the initial tuberosities. The patient received 100 mL Visipaque 320 intravenously prior to imaging.The patient received oral contrast as well prior to imaging. FINDINGS: Unless otherwise specified comparisons below reference February 22, 2016 CT examination. VISUALIZED LUNG BASES: The visualized lung bases are grossly clear. There is no pleural effusion. ABDOMEN AND PELVIS: The spleen is enlarged measuring 15.5 cm in greatest axial dimension similar to the prior CT examination. The liver, pancreas and adrenal glands are grossly normal in appearance. The gallbladder is normal. The kidneys are normal in appearance without focal mass, calcification or signs of hydronephrosis. The oral contrast has progressed only as far as the distal small bowel which prevents more complete evaluation of the terminal ileum and colon. The small and large bowel are not distended. The patient's normal appendix is identified in the right lower quadrant measuring 6 mm in diameter (coronal image 44 and axial image 76). There is gas and stool seen throughout the length of the colon.. There is no gross retroperitoneal or mesenteric lymphadenopathy. Consistent with the patient's surgical history, the uterus is absent. The abdominal aorta and iliac arteries are normal in course and diameter. There are no sinister bone lesions. IMPRESSION: 1. Splenomegaly similar in appearance to the prior CT examination. 2. No CT apparent acute abnormalities.
== END 2017-08-19 05:26 | disposition home or self-care (01) ==
LOC: ED 17:12
DX: N39.0 Urinary tract infection, site not specified (principal); N83.209 Unspecified ovarian cyst, unspecified side; R11.0 Nausea; R10.10 Upper abdominal pain, unspecified; Z83.3 Family history of diabetes mellitus
CPT/HCPCS: 36415; 74177; 76856; 80053; 81003; 81015; 83605; 83690; 84484; 84702; 85025; 86140; 87040; 87086; 96374; 96375; 99283; J1170; J2405; Q9967

== ENCOUNTER 2017-08-27 13:48 | Emergency (ER) | payer MEDICARE ==
[2017-08-27 16:11] VITALS: BP 125/73
--- NOTE | 2017-09-05 19:57 | ED ---
Jorge Guajardo Jennifer, scribed for Chad Ferrera MD on 08/27/17 at 1527 . Neck Pain - HPI Summary HPI Summary: The patient is a 46 year old female who complains of worsening neck pain that radiates down the right arm into her ribs and side since three days ago. She had an MRI of the C-spine three days ago that showed mild to moderate cervical spondylosis. She describes that she has weakness in her right arm. The patient has been taking Ibuprofen for the pain, but it has not been alleviating her pain. She denies numbness. - History of Current Complaint Chief Complaint: EDNeckComplaint Stated Complaint: NECK PAIN, SIDE PAIN Hx Obtained From: Patient Hx Last Menstrual Period: 04/08/16 Onset/Duration Of Injury/Symptoms: Days - three days Onset/Duration: Started days ago - three days, Still Present, Worse Since Severity Initially: Moderate Severity Currently: Moderate Pain Intensity: 7 Pain Scale Used: 0-10 Numeric Location: Radiates To: - right arm and right side Aggravating Factors: Nothing Alleviating Factors: Nothing Associated Signs & Symptoms: Positive: Negative - Numbness, Weakness - of right arm - Allergies/Home Medications Allergies/Adverse Reactions: Allergies Allergy/AdvReac Type Severity Reaction Status Date / Time MS Morphine [Morphine] Allergy Severe Anaphylatic Verified 08/19/17 10:56 Shock MS Pioglitazone [From Actos] Allergy Severe Anaphylatic Verified 08/19/17 10:56 Shock MS Zolpidem [From Ambien] Allergy Severe See Comment Verified 08/19/17 10:56 MS Cinnamon [Cinnamon] Allergy Unknown Verified 08/19/17 10:56 Reaction Details MS Codeine [Codeine] AdvReac Intermediate Vomiting Verified 08/19/17 10:56 MS Oxycodone [Oxycodone] AdvReac Dizziness Verified 08/19/17 10:56 PMH/Surg Hx/FS Hx/Imm Hx Endocrine/Hematology History: Reports: Hx Diabetes - TYPE 2 - metformin, recently started januvia Denies: Hx Anticoagulant Therapy, Hx Thyroid Disease Cardiovascular History: Reports: Hx Angina Denies: Hx Atrial Fibrillation, Hx Congestive Heart Failure, Hx Deep Vein Thrombosis, Hx Hypotension, Hx Hypertension, Hx Myocardial Infarction, Hx Pacemaker/ICD, Hx Valvular Heart Disease Respiratory History: Reports: Hx Asthma, Hx Chronic Obstructive Pulmonary Disease (COPD), Hx Sleep Apnea Denies: Hx Pleural Effusion, Hx Pulmonary Edema, Hx Pulmonary Embolism GI History: Reports: Other GI Disorders - has had GI bleed d/t hemorrhoids Denies: Hx Ulcer History: Reports: Other Problems/Disorders - ovarian cysts Denies: Hx Dialysis, Hx Renal Disease Musculoskeletal History: Reports: Hx Back Problems - cervical arthritis, Other Musculoskeletal History - OBESITY Denies: Hx Arthritis, Hx Osteoporosis Sensory History: Denies: Hx Hearing Aid Neurological History: Reports: Hx Migraine, Hx Seizures, Other Neuro Impairments /Disorders - HEAD INJURY, CONCUSSION X 2 Denies: Hx Dementia, Hx Developmental Delay, Hx Headaches, Hx Nerve Disease, Hx Spinal Cord Injury, Hx Transient Ischemic Attacks (TIA) Psychiatric History: Reports: Hx Depression, Hx Inpatient Treatment, Hx Community Mental Health Tx, Hx Suicide Attempt Denies: Hx Eating Disorder, Hx Panic Disorder, Hx of Violent Episodes Against Others, Hx Substance Abuse - Surgical History Surgery Procedure, Year, and Place: tubal ligation. hysterectomy Hx Anesthesia Reactions: No - Immunization History Date of Tetanus Vaccine: UTD Date of Influenza Vaccine: UTD Infectious Disease History: No Infectious Disease History: Denies: Hx Clostridium Difficile, Hx Hepatitis, Hx Human Immunodeficiency Virus (HIV), Hx of Known/Suspected MRSA, Hx Shingles, Hx Tuberculosis, Hx Known/ Suspected VRE, Hx Known/Suspected VRSA, History Other Infectious Disease, Traveled Outside the [place] in Last 30 Days - Family History Known Family History: Positive: Unknown - Patient is adopted, so family history is unknown - Social History Alcohol Use: None Hx Substance Use: No Substance Use Type: Reports: None Substance Use Comment - Amount & Last Used: rx'd norco 5/325 q4h prn chronic pain Hx Tobacco Use: No Smoking Status (MU): Former Smoker Type: Cigarettes Amount Used/How Often: 1/2 PPD for 10 years Have You Smoked in the Last Year: No Review of Systems Positive: Other - Neck Pain Positive: Weakness - Right arm. Negative: Numbness All Other Systems Reviewed And Are Negative: Yes Physical Exam - Summary Physical Exam Summary: Appearance: Well-appearing, Well-nourished Skin: Warm, Dry, No rash Eyes: Normal, PERRL, EOMI, sclera anicteric ENT: Normal Neck: Supple, nontender Respiratory: Clear to auscultation Cardiovascular: S1, S2, no murmur, no rub, no gallop Abdomen: Soft, nontender, no organomegaly Bowel sounds: Present Musculoskeletal: Normal, Strength/ROM Intact, no edema, pulses symmetrical, no clonus Neurological: Normal, A&Ox3, cranial nerves II-XII WNL, follows commands, gait not tested, sensation intact to pin and light touch, normal reflexes, Babinski reflex normal, gait normal Psychiatric: affect normal, behavior appropriate, dressed appropriately, judgment intact Triage Information Reviewed: Yes Vital Signs On Initial Exam: Initial Vitals Temp Pulse Resp BP Pulse Ox 96.8 F 78 17 130/79 97 08/27/17 14:03 08/27/17 14:03 08/27/17 14:03 08/27/17 14:03 08/27/17 14:03 Vital Signs Reviewed: Yes Diagnostics - Vital Signs Vital Signs Temp Pulse Resp BP Pulse Ox 08/27/17 14:03 96.8 F 78 17 130/79 97 - Laboratory Lab Statement: Any lab studies that have been ordered have been reviewed, and results considered in the medical decision making process. Neck Course/Dx - Course Assessment/Plan: The patient is a 46 year old female who complains of worsening neck pain that radiates down the right arm into her ribs and side since three days ago. The patient is diagnosed with cervical disc disease. The patient is instructed to follow up with primary care. - Diagnoses Provider Diagnoses: Cervical disc disease Discharge - Discharge Plan Condition: Fair Disposition: HOME Patient Education Materials: Degenerative Disc Disease (ED) Referrals: Jennifer Dietrich MD [Primary Care Provider] - Additional Instructions: RETURN TO THE EMERGENCY DEPARTMENT FOR CHANGING OR WORSENING SYMPTOMS. The documentation as recorded by the Jorge thacker Jennifer accurately reflects the service I personally performed and the decisions made by , Chad Ferrera MD.
== END 2017-08-27 16:11 | disposition home or self-care (01) ==
LOC: ED 13:48
DX: M50.90 Cervical disc disorder, unspecified, unspecified cervical region (principal); Z87.891 Personal history of nicotine dependence; Z88.5 Allergy status to narcotic agent; Z88.8 Allergy status to other drugs, medicaments and biological substances
CPT/HCPCS: 99282

== ENCOUNTER 2017-12-30 13:50 | Emergency (ER) | payer MEDICARE, OTHER ==
[2017-12-30] MEDS ORDERED: Metoclopramide IV* 5 MG/ML 2 ML VIAL IV ONE (15:12)
[2017-12-30 16:17] LABS: ABS Basophils 0.1 10^3/ul (0-0.2); ABS Eosinophils 0.1 10^3/ul (0-0.6); ABS Monocytes 0.4 10^3/ul (0-0.8); ABS Neutrophils 3.6 10^3/ul (1.5-7.7); ABS Nucleated RBC 0 10^3/ul; Eosinophil % 1.9 % (0-6); Hematocrit 42 % (35-47); Hemoglobin 14.5 g/dl (12.0-16.0); Lymphocyte % 41.3 % (25-47); Mean Corpuscular HGB Conc 35 g/dl (31-36); Mean Corpuscular Hemoglobin 29 pg (27-31); Mean Corpuscular Volume 84 fL (80-97); Mean Platelet Volume 6.9 um3 (7.4-10.4); Nucleated Red Blood Cells % 0.2; Platelet Count 190 10^3/ul (150-450); Red Blood Count 4.99 10^6/ul (4.00-5.40); Red Cell Distribution Width 13 % (10.5-15); White Blood Count 7.1 10^3/ul (3.5-10.8)
[2017-12-30 16:51] LABS: EGFR Non-African American 82.3 (>60)
[2017-12-30] MEDS ORDERED: Iodixanol* (CONTRAST) 320 MG/ML 100 ML SDV IV ONE (16:55)
--- NOTE | 2017-12-30 17:31 | RAD ---
INDICATION: Left lower quadrant abdominal pain. COMPARISON: Comparison is made with a prior study from August 19, 2017. TECHNIQUE: A CT scan of the abdomen and pelvis was performed with intravenous and with oral contrast following intravenous injection of 130 ml of Visipaque 320 nonionic contrast. Contiguous axial sections were obtained from the lung bases through the symphysis pubis. Images were reconstructed in the coronal and sagittal planes. FINDINGS: The lung bases are clear. No pleural effusion is present. The liver is normal in size and decreased in attenuation consistent with fatty infiltration. No significant focal hepatic abnormality is seen. No calcified gallstones are noted. The pancreas appears to be within normal limits. The spleen is enlarged spanning 15.8 cm and unchanged from the prior study without focal abnormality. The kidneys and adrenal glands are normal in size. No hydronephrosis is seen. No significant focal renal abnormality is seen. The aorta is normal in caliber and demonstrates homogeneous contrast opacification. No significant enlarged retroperitoneal lymph nodes are seen. The stomach, small and large bowel appear nondistended. The appendix is within normal limits. There is mild descending and sigmoid diverticulosis without evidence for diverticulitis. There is a small periumbilical hernia containing fat. The patient is status post hysterectomy. No free intraperitoneal air or fluid is seen. There is a small 1.5 cm left ovarian cyst. No fracture is seen. IMPRESSION: 1. NO EVIDENCE FOR ACUTE FINDING OR CAUSE FOR THE PATIENT'S ABDOMINAL PAIN IS SEEN. 2. HEPATIC STEATOSIS. 3. SPLENOMEGALY, UNCHANGED. 4. STATUS POST HYSTERECTOMY.
[2017-12-30 18:37] LABS: Urine Appearance Clear; Urine Blood Negative (Negative); Urine Color Yellow; Urine Ketones Negative (Negative); Urine Protein Negative (Negative); Urine Red Blood Cell Trace(0-2/hpf) (Absent); Urine Specific Gravity > 1.060 (1.010-1.030); Urine Urobilinogen Negative (Negative); Urine White Blood Cell 2+(11-20/hpf) (Absent)
[2017-12-30 18:39] VITALS: BP 132/79
--- NOTE | 2017-12-31 21:48 | ED ---
Geraldo Guajardo Julia, scribed for Kirk Munguia MD on 12/30/17 at 1502 . Abdominal Pain/Female - HPI Summary HPI Summary: This patient is a 54 year old F presenting to [facility] with a chief complaint of LLQ abdominal pain, with dark diarrhea last night. Reports nausea and current difficulty with BM. Pain is 7/10 in severity. Patient has taken Pepto Bismol twice yesterday. - History of Current Complaint Chief Complaint: EDAbdPain Stated Complaint: BLOATING/ABD PAIN Time Seen by Provider: 12/30/17 14:57 Hx Obtained From: Patient Hx Last Menstrual Period: 04/08/16 Onset/Duration: Lasting Days Timing: Constant Pain Intensity: 7 Pain Scale Used: 0-10 Numeric Location: Other - left Alleviating Factor(s): Nothing Associated Signs and Symptoms: Positive: Nausea, Diarrhea, Other: - dark BM Allergies/Adverse Reactions: Allergies Allergy/AdvReac Type Severity Reaction Status Date / Time cinnamon Allergy Unknown Verified 12/30/17 14:14 Reaction Details codeine Allergy Nausea And Verified 12/30/17 14:14 Vomiting morphine Allergy Anaphylatic Verified 12/30/17 14:14 Shock oxycodone Allergy Dizziness Verified 12/30/17 14:14 pioglitazone [From Actos] Allergy Anaphylatic Verified 12/30/17 14:14 Shock zolpidem [From Ambien] Allergy See Comment Verified 12/30/17 14:15 Home Medications: Home Medications Ibuprofen TAB* [Motrin TAB* 600 MG] 600 mg PO Q8H PRN 12/30/17 [History Confirmed 12/30/17] Sitagliptin (NF) [Januvia (NF)] 50 mg PO DAILY 12/30/17 [History Confirmed 12/30] buPROPion SR TAB* [Wellbutrin SR TAB*] 200 mg PO BID 12/30/17 [History Confirmed 12/30/17] PMH/Surg Hx/FS Hx/Imm Hx Endocrine/Hematology History: Reports: Hx Diabetes - TYPE 2 - metformin, recently started januvia Denies: Hx Anticoagulant Therapy, Hx Thyroid Disease Cardiovascular History: Reports: Hx Angina Denies: Hx Atrial Fibrillation, Hx Congestive Heart Failure, Hx Deep Vein Thrombosis, Hx Hypotension, Hx Hypertension, Hx Myocardial Infarction, Hx Pacemaker/ICD, Hx Valvular Heart Disease Respiratory History: Reports: Hx Asthma, Hx Chronic Obstructive Pulmonary Disease (COPD), Hx Sleep Apnea Denies: Hx Pleural Effusion, Hx Pulmonary Edema, Hx Pulmonary Embolism GI History: Reports: Other GI Disorders - has had GI bleed d/t hemorrhoids Denies: Hx Ulcer History: Reports: Other Problems/Disorders - ovarian cysts Denies: Hx Dialysis, Hx Renal Disease Musculoskeletal History: Reports: Hx Back Problems - cervical arthritis, Other Musculoskeletal History - OBESITY Denies: Hx Arthritis, Hx Osteoporosis Sensory History: Denies: Hx Hearing Aid Neurological History: Reports: Hx Migraine, Hx Seizures, Other Neuro Impairments /Disorders - HEAD INJURY, CONCUSSION X 2 Denies: Hx Dementia, Hx Developmental Delay, Hx Headaches, Hx Nerve Disease, Hx Spinal Cord Injury, Hx Transient Ischemic Attacks (TIA) Psychiatric History: Reports: Hx Depression, Hx Inpatient Treatment, Hx Community Mental Health Tx, Hx Suicide Attempt Denies: Hx Eating Disorder, Hx Panic Disorder, Hx of Violent Episodes Against Others, Hx Substance Abuse - Surgical History Surgery Procedure, Year, and Place: tubal ligation. hysterectomy Hx Anesthesia Reactions: No - Immunization History Date of Tetanus Vaccine: UTD Date of Influenza Vaccine: UTD Infectious Disease History: No Infectious Disease History: Denies: Hx Clostridium Difficile, Hx Hepatitis, Hx Human Immunodeficiency Virus (HIV), Hx of Known/Suspected MRSA, Hx Shingles, Hx Tuberculosis, Hx Known/ Suspected VRE, Hx Known/Suspected VRSA, History Other Infectious Disease, Traveled Outside the [place] in Last 30 Days - Family History Known Family History: Positive: Unknown - Patient is adopted, family history is unknown - Social History Alcohol Use: None Hx Substance Use: No Substance Use Type: Reports: None Substance Use Comment - Amount & Last Used: rx'd norco 5/325 q4h prn chronic pain Hx Tobacco Use: No Smoking Status (MU): Former Smoker Type: Cigarettes Amount Used/How Often: 1/2 PPD for 10 years Have You Smoked in the Last Year: No Review of Systems Negative: Fever Positive: Abdominal Pain, Diarrhea, Nausea All Other Systems Reviewed And Are Negative: Yes Physical Exam - Summary Physical Exam Summary: VITAL SIGNS: Reviewed. GENERAL: Patient is a obese female who is lying comfortable in the stretcher. Patient is not in any acute respiratory distress. HEAD AND FACE: Normocephalic and atraumatic. EYES: PERRLA, EOMI x 2, No injected conjunctiva. EARS: Hearing grossly intact. Ear canals and tympanic membranes are WNL. MOUTH: Oropharynx within normal limits. NECK: Supple, trachea is midline, no adenopathy, no JVD. CHEST: Symmetric, no tenderness at palpation LUNGS: Clear to auscultation bilaterally. No wheezing or crackles. CVS: RRR, S1 and S2 present, no murmurs or gallops appreciated. ABDOMEN: Soft, LLQ tenderness. No signs of distention. Positive bowel sounds. No rebound no guarding, and no masses palpated. No abdominal bruit or pulsations. EXTREMITIES: FROM in all major joints, no edema, no cyanosis or clubbing. NEURO: Alert and oriented x 3. No acute neurological deficits. Speech is normal. SKIN: Dry and warm Triage Information Reviewed: Yes Vital Signs On Initial Exam: Initial Vitals Temp Pulse Resp BP Pulse Ox 97.9 F 69 15 115/71 97 12/30/17 14:00 12/30/17 14:00 12/30/17 14:00 12/30/17 14:00 12/30/17 14:00 Vital Signs Reviewed: Yes Diagnostics - Vital Signs Vital Signs Temp Pulse Resp BP Pulse Ox 12/30/17 14:54 57 118/74 98 12/30/17 14:00 97.9 F 69 15 115/71 97 - Laboratory Lab Results: Lab Results 12/30/17 12/30/17 12/30/17 Range/Units 16:00 16:00 16:00 WBC 7.1 (3.5-10.8) 10^3/ul RBC 4.99 (4.00-5.40) 10^6/ul Hgb 14.5 (12.0-16.0) g/dl Hct 42 (35-47) % MCV 84 (80-97) fL MCH 29 (27-31) pg MCHC 35 (31-36) g/dl RDW 13 (10.5-15) % Plt Count 190 (150-450) 10^3/ul MPV 6.9 L (7.4-10.4) um3 Neut % (Auto) 50.2 (38-83) % Lymph % (Auto) 41.3 (25-47) % Ralls % (Auto) 5.4 (0-7) % Eos % (Auto) 1.9 (0-6) % Baso % (Auto) 1.2 (0-2) % Absolute Neuts (auto) 3.6 (1.5-7.7) 10^3/ul Absolute Lymphs (auto) 3.0 (1.0-4.8) 10^3/ul Absolute Monos (auto) 0.4 (0-0.8) 10^3/ul Absolute Eos (auto) 0.1 (0-0.6) 10^3/ul Absolute Basos (auto) 0.1 (0-0.2) 10^3/ul Absolute Nucleated RBC 0 10^3/ul Nucleated RBC % 0.2 Sodium 140 (139-145) mmol/L Potassium 3.7 (3.5-5.0) mmol/L Chloride 110 (101-111) mmol/L Carbon Dioxide 21 L (22-32) mmol/L Anion Gap 9 (2-11) mmol/L BUN 16 (6-24) mg/dL Creatinine 0.76 (0.51-0.95) mg/dL Est GFR ( Amer) 105.8 (>60) Est GFR (Non-Af Amer) 82.3 (>60) BUN/Creatinine Ratio 21.1 H (8-20) Glucose 108 H (70-100) mg/dL Lactic Acid 1.1 (0.5-2.0) mmol/L Calcium 9.1 (8.6-10.3) mg/dL Total Bilirubin 0.60 (0.2-1.0) mg/dL AST 12 L (13-39) U/L ALT 12 (7-52) U/L Alkaline Phosphatase 51 (34-104) U/L C-Reactive Protein 1.72 (< 5.00) mg/L Total Protein 6.4 (6.4-8.9) g/dL Albumin 4.1 (3.2-5.2) g/dL Globulin 2.3 (2-4) g/dL Albumin/Globulin Ratio 1.8 (1-3) Lipase 41 (11.0-82.0) U/L Urine Color Urine Appearance Urine pH (5-9) Ur Specific [place] (1.010-1.030) Urine Protein (Negative) Urine Ketones (Negative) Urine Blood (Negative) Urine Nitrate (Negative) Urine Bilirubin (Negative) Urine Urobilinogen (Negative) Ur Leukocyte Esterase (Negative) Urine WBC (Auto) (Absent) Urine RBC (Auto) (Absent) Ur Squamous Epith Cells (Absent) Urine Bacteria (Absent) Urine Glucose (Negative) 12/30/17 Range/Units 18:05 WBC (3.5-10.8) 10^3/ul RBC (4.00-5.40) 10^6/ul Hgb (12.0-16.0) g/dl Hct (35-47) % MCV (80-97) fL MCH (27-31) pg MCHC (31-36) g/dl RDW (10.5-15) % Plt Count (150-450) 10^3/ul MPV (7.4-10.4) um3 Neut % (Auto) (38-83) % Lymph % (Auto) (25-47) % Ralls % (Auto) (0-7) % Eos % (Auto) (0-6) % Baso % (Auto) (0-2) % Absolute Neuts (auto) (1.5-7.7) 10^3/ul Absolute Lymphs (auto) (1.0-4.8) 10^3/ul Absolute Monos (auto) (0-0.8) 10^3/ul Absolute Eos (auto) (0-0.6) 10^3/ul Absolute Basos (auto) (0-0.2) 10^3/ul Absolute Nucleated RBC 10^3/ul Nucleated RBC % Sodium (139-145) mmol/L Potassium (3.5-5.0) mmol/L Chloride (101-111) mmol/L Carbon Dioxide (22-32) mmol/L Anion Gap (2-11) mmol/L BUN (6-24) mg/dL Creatinine (0.51-0.95) mg/dL Est GFR ( Amer) (>60) Est GFR (Non-Af Amer) (>60) BUN/Creatinine Ratio (8-20) Glucose (70-100) mg/dL Lactic Acid (0.5-2.0) mmol/L Calcium (8.6-10.3) mg/dL Total Bilirubin (0.2-1.0) mg/dL AST (13-39) U/L ALT (7-52) U/L Alkaline Phosphatase (34-104) U/L C-Reactive Protein (< 5.00) mg/L Total Protein (6.4-8.9) g/dL Albumin (3.2-5.2) g/dL Globulin (2-4) g/dL Albumin/Globulin Ratio (1-3) Lipase (11.0-82.0) U/L Urine Color Yellow Urine Appearance Clear Urine pH 5.0 (5-9) Ur Specific [place] > 1.060 H (1.010-1.030) Urine Protein Negative (Negative) Urine Ketones Negative (Negative) Urine Blood Negative (Negative) Urine Nitrate Negative (Negative) Urine Bilirubin Negative (Negative) Urine Urobilinogen Negative (Negative) Ur Leukocyte Esterase 2+ A (Negative) Urine WBC (Auto) 2+(11-20/hpf) A (Absent) Urine RBC (Auto) Trace(0-2/hpf) (Absent) Ur Squamous Epith Cells Present A (Absent) Urine Bacteria Absent (Absent) Urine Glucose Negative (Negative) Result Diagrams: 12/30/17 16:00 12/30/17 16:00 Lab Statement: Any lab studies that have been ordered have been reviewed, and results considered in the medical decision making process. - CT A/P CT Interpretation Completed By: Radiologist - 1. NO EVIDENCE FOR ACUTE FINDING OR CAUSE FOR THE PATIENT'S ABDOMINAL PAIN IS SEEN. 2. HEPATIC STEATOSIS. 3. SPLENOMEGALY, UNCHANGED. 4. STATUS POST HYSTERECTOMY. ED PHysician has reviewed this report. - EKG 1504 Cardiac Rate: NL EKG Rhythm: Atrial Fibrillation - 66 BPM EKG Interpretation: no ST elevations, normal axis Abdominal Pain Fem Course/Dx - Course Course Of Treatment: 54 year old F presenting to [facility] with a chief complaint of LLQ abdominal pain, with dark diarrhea last night. Reports nausea and current difficulty with BM. Pain is 7/10 in severity. Patient has taken Pepto Bismol twice yesterday. Bloodwork has no significant abnormalities. Negative for occult blood. A/P CT reveals, 1. NO EVIDENCE FOR ACUTE FINDING OR CAUSE FOR THE PATIENT'S ABDOMINAL PAIN IS SEEN. 2. HEPATIC STEATOSIS. 3. SPLENOMEGALY , UNCHANGED. 4. STATUS POST HYSTERECTOMY. As per radiologist. Since patient has no ovaries in left side, there is no suspicion for ovarian torsion. Patient feels better and pain is 1/10. No acute pathology found. Patient will be discharged home and is instructed to follow up with PCP. The pt is hemodynamically stable, alert and oriented x3. - Diagnoses Provider Diagnoses: Diffuse abdominal pain Discharge - Sign-Out/Discharge Documenting (check all that apply): Discharge/Admit/Transfer - Discharge Plan Condition: Stable Disposition: HOME Patient Education Materials: Abdominal Pain (ED) Referrals: Jennifer Dietrich MD [Primary Care Provider] - 2 Days Additional Instructions: RETURN TO TO THE EMERGENCY DEPARTMENT FOR ANY WORSENING OR NEW SYMPTOMS. - Billing Disposition and Condition Condition: STABLE Disposition: Home The documentation as recorded by the Geraldo thacker Julia accurately reflects the service I personally performed and the decisions made by Ezra fish Walter, MD.
== END 2017-12-30 18:39 | disposition home or self-care (01) ==
LOC: ED 13:50
DX: R10.32 Left lower quadrant pain (principal); R11.0 Nausea; R19.7 Diarrhea, unspecified; E11.9 Type 2 diabetes mellitus without complications; Z87.891 Personal history of nicotine dependence
CPT/HCPCS: 36415; 74177; 80053; 81003; 81015; 82270; 83605; 83690; 85025; 86140; 87086; 93005; 96374; 99282; J2765; Q9967

== ENCOUNTER 2018-06-14 11:28 | Emergency (ER) | payer MEDICARE, OTHER ==
[2018-06-14 11:50] VITALS: BP 130/88
[2018-06-14] MEDS ORDERED: traMADol TAB* 50 MG PO ONE (12:15)
--- NOTE | 2018-06-14 12:25 | UC ---
Shoulder Pain HPI - HPI Summary HPI Summary: 47-year-old woman comes in to clinic today with a chief complaint of left neck and left upper chest and left shoulder pain. This been going on for couple weeks. 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 Pain is worse with taking a deep breath or moving the arm or the neck. She's been taking some ibuprofen with minimal relief. She has been having some numbness into the left hand. She feels like her left arm is weak. When she bends her elbow she gets pain in the shoulder on the left which also radiates up into the neck and left upper chest. - History of Current Complaint Chief Complaint: UCUpperExtremity Stated Complaint: SWELLING IN CLAVICAL Time Seen by Provider: 06/14/18 12:03 Hx Last Menstrual Period: 04/08/16 Pain Intensity: 8 - Allergies/Home Medications Allergies/Adverse Reactions: Allergies Allergy/AdvReac Type Severity Reaction Status Date / Time cinnamon Allergy Unknown Verified 06/14/18 11:51 Reaction Details codeine Allergy Nausea And Verified 06/14/18 11:50 Vomiting morphine Allergy Anaphylatic Verified 06/14/18 11:50 Shock oxycodone Allergy Dizziness Verified 06/14/18 11:50 pioglitazone [From Actos] Allergy Anaphylatic Verified 06/14/18 11:50 Shock zolpidem [From Ambien] Allergy See Comment Verified 06/14/18 11:50 Home Medications: Home Medications Gabapentin 600 mg PO TID 06/14/18 [History Confirmed 06/14/18] PMH/Surg Hx/FS Hx/Imm Hx Endocrine History: Diabetes Respiratory History: COPD Neurological History: Seizures Other History Of: Negative For: Anticoagulant Therapy - Surgical History Surgical History: Yes Surgery Procedure, Year, and Place: tubal ligation. hysterectomy - Family History Known Family History: Positive: Unknown - Patient is adopted, family history is unknown - Social History Alcohol Use: Occasionally Substance Use Type: None Substance Use Comment - Amount & Last Used: rx'd norco 5/325 q4h prn chronic pain Smoking Status (MU): Former Smoker Type: Cigarettes Amount Used/How Often: 1/2 PPD for 10 years Have You Smoked in the Last Year: No When Did the Patient Quit Smoking/Using Tobacco: 23 years Household Exposure Type: Cigarettes - Immunization History Most Recent Influenza Vaccination: 07/2015 Most Recent Tetanus Shot: N/A Most Recent Pneumonia Vaccination: july 2015 Review of Systems All Other Systems Reviewed And Are Negative: Yes Constitutional: Positive: Negative Skin: Positive: Negative Eyes: Positive: Negative ENT: Positive: Negative Respiratory: Positive: Negative Cardiovascular: Positive: Negative Gastrointestinal: Positive: Negative Motor: Positive: Weakness - SEE HPI Neurovascular: Positive: Decreased Sensation - SEE HPI Musculoskeletal: Positive: Myalgia - SEE HPI Neurological: Positive: Weakness, Paresthesia Psychological: Positive: Negative Is Patient Immunocompromised?: No Physical Exam Triage Information Reviewed: Yes Appearance: Well-Appearing, Well-Nourished, Pain Distress - MILD,WORSE WITH MOVEMENT OF LEFT ARM OR NECK Vital Signs: Initial Vital Signs Temp 98.4 F 06/14/18 11:45 Pulse 66 06/14/18 11:45 Resp 18 06/14/18 11:45 BP 130/88 06/14/18 11:45 Pulse Ox 100 06/14/18 11:45 Vital Signs Reviewed: Yes Eye Exam: Normal Eyes: Positive: Conjunctiva Clear Neck: Positive: Other: - Patient is tender to palpation in the left side of the neck post anterior and lateral. Increased pain with twisting turning of the neck. Respiratory: Positive: Lungs clear, Normal breath sounds, No respiratory distress, Other: - Patient is tender to palpation on the left neck and the left trapezius the left clavicle area into the left shoulder. Muscles are tight feels like there in spasm. Cardiovascular: Positive: RRR Musculoskeletal: Positive: Other: - Positive radial pulses bilaterally. On my exam I do not elicit any sensation deficit at this time. Fingers and wrists have full range of motion and full strength. Elbows have full range of motion and strength. Pain is worse in the shoulder left upper chest and neck with movement of the left elbow. Patient declines movement of left shoulder due to extreme pain with movement of the shoulder. She is tender in the shoulder joint all along the course of the clavicle in the left upper trapezius and the left neck. Neurological: Positive: Alert, Muscle Tone Normal Psychological: Positive: Normal Response To Family, Age Appropriate Behavior Skin Exam: Normal Shoulder Course/Dx - Course Course Of Treatment: Order Information: SHOULDER LEFT 2+ VWS. Accession Number : [id number]. CPT: 51541. HISTORY: LT SHOULDER PAIN. COMPARISONS: None. VIEWS: 4 , Frontal internal rotation, external rotation, outlet, and axillary views of the. left shoulder. FINDINGS: BONE DENSITY: Normal. BONES: There is no displaced fracture. JOINTS: There is mild osteoarthrosis of the a.c. and glenohumeral joints. ALIGNMENT: There is no dislocation. SOFT TISSUES: Unremarkable. OTHER FINDINGS: None. IMPRESSION: OSTEOARTHRITIS. NO ACUTE OSSEOUS INJURY. IF SYMPTOMS PERSIST, RECOMMEND REPEAT IMAGING. . <Electronically signed by Tobi Reese MD in [place]> 06/14/18 8618. BRAIN: The visualized brain is unremarkable. CENTRAL CANAL: Evaluation of the central canal is limited on CT technique; however, there. is no obvious canalicular mass or epidural hemorrhage. ALIGNMENT: The alignment is normal, without subluxation or dislocation. VERTEBRAL BODIES: Incidentally noted is a dysraphic defect of the posterior arch of C1. JOINTS: There is diffuse uncovertebral and facet osteoarthritis. MUSCULATURE: Unremarkable. INTERVERTEBRAL DISCS: There is diffuse loss of intervertebral disc height. AXIAL IMAGES: C2-C3: There is bilateral facet osteoarthritis. There is mild bilateral neuroforaminal. narrowing. There is no osseous central canal stenosis. C3-C4: There is right greater than left uncovertebral and facet osteoarthritis. There is. severe right neural foraminal narrowing. There is no osseous central canal stenosis. C4-C5: There is no osseous neural foraminal narrowing or central canal stenosis. C5-C6: There is mild bilateral uncovertebral and facet hypertrophy. There is no osseous. neural foraminal narrowing or central canal stenosis. C6- C7: There is no osseous neural foraminal narrowing or central canal stenosis. C7-T1: There is no osseous neural foraminal narrowing or central canal stenosis. SOFT TISSUES: The visualized soft tissues of the neck are unremarkable. The prevertebral. fat stripe is preserved. OTHER: None. IMPRESSION: 1. DEGENERATIVE DISC DISEASE AND OSTEOARTHRITIS. 2. THERE IS NEURAL FORAMINAL NARROWING DESCRIBED ABOVE. THERE IS NO SIGNIFICANT. CENTRAL CANAL STENOSIS. . <Electronically signed by Tobi Reese MD in [place]> 06/14/18 1311. Order Information: CT CHEST W/O. Accession Number: [id number]. CPT: 80752. INDICATION: LEFT side clavicle pain that radiates down the LEFT arm. Possible repetitive. use injury. COMPARISON: June 14, 2018 radiographs. November 25, 2015 CT. TECHNIQUE: Multidetector CT images were obtained from the lung apices to the upper. abdomen. Evaluation of the viscera is limited without IV contrast. REPORT: 0.5 cm groundglass opacity nodule at the RIGHT upper lobe on image 26 is grossly. unchanged compared with the November 2015 CT without concern. Minimal bilateral dependent. atelectasis. Negative for pleural effusions. Negative for pneumothorax. 0.9 cm short axis precarinal lymph node without significant change. 1.3 cm short axis AP. window lymph node increased from 1.1 cm previously. Negative for cardiomegaly or. pericardial effusion. Normal diameter thoracic aorta. Unremarkable images through the upper abdomen. Osteophytosis and subchondral sclerosis and. cystic change at the LEFT sternoclavicular joint new compared with the 2016 exam. Unremarkable RIGHT sternoclavicular joint. No compelling soft tissue inflammatory change. surrounding the LEFT sternoclavicular joint. No fracture or suspicious thoracic osseous. lesions evident. IMPRESSION: #. Moderate degenerative arthropathy at the LEFT sternoclavicular joint new compared with. the 2016 exam. The partially visualized LEFT acromioclavicular joint also demonstrates. osteoarthritis based on correlation with the radiographs of the same date. #. No fracture or suspicious focal osseous lesions evident. . <Electronically signed by Kirk Christianson MD in [place]> 06/14/18 1332. I discussed the results of the x-rays with the patient and her . Patient has arthritis in the neck and also the proximal and distal clavicle. No masses or other concerning structures seen. Plan now is ibuprofen and Flexeril. Discussed the use of tramadol with the patient. She has a history of seizures and they can lower the seizure threshold. This with the with the patient. She has allergies to opioids. She' s had tramadol before without any problems. At this time she feels comfortable taking the tramadol for pain as needed and she knows if she does have a seizure she is to stop the tramadol. She has follow-up scheduled with her primary care doctor in 2 days on June 16, 2018. At this time she has no focal neurologic deficit I let her know if she does end up with weakness or numbness that does not go away she needs to get reevaluated right away. - Differential Dx/Diagnosis Provider Diagnosis: Neck pain, Left shoulder pain, Cervical radiculopathy, Arthritis Discharge - Sign-Out/Discharge Documenting (check all that apply): Patient Departure All imaging exams completed and their final reports reviewed: No Studies - Discharge Plan Condition: Stable Disposition: HOME Prescriptions: Cyclobenzaprine TAB* [Flexeril 10 MG TAB*] 10 mg PO TID PRN #15 tab MDD 3 PRN Reason: Pain traMADol TAB* [Ultram*] 50 mg PO Q6HR PRN #20 tab MDD 4 PRN Reason: Pain Patient Education Materials: Acute Neck Pain (ED), Cervical Radiculopathy (ED) , Shoulder Pain (ED), Arthritis (ED) Forms: *Work Release Referrals: Jennifer Dietrich MD [Primary Care Provider] - Additional Instructions: FOLLOW UP WITH YOUR DOCTOR SCHEDULED ON 06/16/18. STOP THE TRAMADOL IF YOU HAVE A SEIZURE. GET RECHECKED FOR ANY WORSENING OF YOUR CONDITION; WEAKNESS, NUMBNESS, PAIN OR QUESTIONS OR CONCERNS. - Billing Disposition and Condition Condition: STABLE Disposition: Home
--- NOTE | 2018-06-15 22:13 | UC ---
- Progress Note Progress Note: images reviewed prior to discharge Course/Dx - Diagnoses Provider Diagnoses: Neck pain, Left shoulder pain, Cervical radiculopathy, Arthritis Discharge - Sign-Out/Discharge Documenting (check all that apply): Post-Discharge Follow Up All imaging exams completed and their final reports reviewed: Yes - Discharge Plan Condition: Stable Disposition: HOME Prescriptions: Cyclobenzaprine TAB* [Flexeril 10 MG TAB*] 10 mg PO TID PRN #15 tab MDD 3 PRN Reason: Pain traMADol TAB* [Ultram*] 50 mg PO Q6HR PRN #20 tab MDD 4 PRN Reason: Pain Patient Education Materials: Cervical Radiculopathy (ED), Shoulder Pain (ED), Arthritis (ED), Acute Neck Pain (ED) Forms: *Work Release Referrals: Jennifer Dietrich MD [Primary Care Provider] - Additional Instructions: FOLLOW UP WITH YOUR DOCTOR SCHEDULED ON 06/16/18. STOP THE TRAMADOL IF YOU HAVE A SEIZURE. GET RECHECKED FOR ANY WORSENING OF YOUR CONDITION; WEAKNESS, NUMBNESS, PAIN OR QUESTIONS OR CONCERNS. - Billing Disposition and Condition Condition: STABLE Disposition: Home
== END 2018-06-14 14:01 | disposition home or self-care (01) ==
LOC: UCEAST 11:28
DX: M54.2 Cervicalgia (principal); M25.512 Pain in left shoulder; M54.12 Radiculopathy, cervical region; M19.90 Unspecified osteoarthritis, unspecified site; F17.210 Nicotine dependence, cigarettes, uncomplicated; Z88.5 Allergy status to narcotic agent; Z88.8 Allergy status to other drugs, medicaments and biological substances
CPT/HCPCS: 71250; 72125; 99212; A9270-GY; G0463

== ENCOUNTER 2018-06-24 15:46 | Emergency (ER) | payer SELFPAY ==
[2018-06-24] MEDS ORDERED: NS 0.9% 1000 ML* 1,000 ML IV ONE (17:25)
[2018-06-24] MEDS ORDERED: Aspirin 81 mg CHEW TAB* 81 MG TAB.CHEW PO ONE (17:26)
--- NOTE | 2018-06-24 18:04 | ED ---
HPI Chest Pain - HPI Summary HPI Summary: Pt is a 47 y/o female who presents to the ED c/o clavicle pain. She has had left clavicle pain for the past 2 months, which has worsened over the past 2 days. Pt had a doctors appointment today, and was sent here because of her EKG results. She does heavy lifting at work, which exacerbates the pain. Pt denies any trauma to the area. She c/o SOB, nausea, and near-syncope today. Pt denies any CP or diaphoresis. Ibuprofen alleviates the pain. The pain is currently rates as a 7/10 in severity. Pt has DM and epilepsy, and her last seizure was about 6 weeks ago. - History of Current Complaint Chief Complaint: EDChestPainROMI Time Seen by Provider: 06/24/18 17:14 Hx Obtained From: Patient Hx Last Menstrual Period: 04/08/16 Onset/Duration: Started Weeks Ago - 2 months, Worse Since Timing: Constant Current Severity: Moderate Pain Intensity: 7 Pain Scale Used: 0-10 Numeric Chest Pain Location: Discrete at: - left clavicle Chest Pain Radiates: No Aggravating Factor(s): Other: - Heavy lifting Alleviating Factor(s): OTC Meds - Ibuprofen Associated Signs and Symptoms: Positive: Shortness of Breath, Syncope - Near, Nausea. Negative: Chest Pain - Additional Pertinent History Primary Care Physician: GIOVANA - Allergy/Home Medications Allergies/Adverse Reactions: Allergies Allergy/AdvReac Type Severity Reaction Status Date / Time cinnamon Allergy Unknown Verified 06/14/18 11:51 Reaction Details codeine Allergy Nausea And Verified 06/14/18 11:50 Vomiting morphine Allergy Anaphylatic Verified 06/14/18 11:50 Shock oxycodone Allergy Dizziness Verified 06/14/18 11:50 pioglitazone [From Actos] Allergy Anaphylatic Verified 06/14/18 11:50 Shock zolpidem [From Ambien] Allergy See Comment Verified 06/14/18 11:50 Home Medications: Home Medications Gabapentin TAB(NF) [Neurontin 600 mg TAB(NF)] 600 mg PO TID 06/24/18 [History Confirmed 06/24/18] Sitagliptin (NF) [Januvia (NF)] 50 mg PO DAILY 06/24/18 [History Confirmed 06/24] PMH/Surg Hx/FS Hx/Imm Hx Endocrine/Hematology History: Reports: Hx Diabetes - TYPE 2 - metformin, recently started januvia Denies: Hx Anticoagulant Therapy, Hx Thyroid Disease Cardiovascular History: Reports: Hx Angina Denies: Hx Atrial Fibrillation, Hx Congestive Heart Failure, Hx Deep Vein Thrombosis, Hx Hypotension, Hx Hypertension, Hx Myocardial Infarction, Hx Pacemaker/ICD, Hx Valvular Heart Disease Respiratory History: Reports: Hx Asthma, Hx Chronic Obstructive Pulmonary Disease (COPD), Hx Sleep Apnea Denies: Hx Pleural Effusion, Hx Pulmonary Edema, Hx Pulmonary Embolism GI History: Reports: Other GI Disorders - has had GI bleed d/t hemorrhoids Denies: Hx Ulcer History: Reports: Other Problems/Disorders - ovarian cysts Denies: Hx Dialysis, Hx Renal Disease Musculoskeletal History: Reports: Hx Back Problems - cervical arthritis, Other Musculoskeletal History - OBESITY Denies: Hx Arthritis, Hx Osteoporosis Sensory History: Denies: Hx Hearing Aid Neurological History: Reports: Hx Migraine, Hx Seizures, Other Neuro Impairments /Disorders - HEAD INJURY, CONCUSSION X 2 Denies: Hx Dementia, Hx Developmental Delay, Hx Headaches, Hx Nerve Disease, Hx Spinal Cord Injury, Hx Transient Ischemic Attacks (TIA) Psychiatric History: Reports: Hx Depression, Hx Inpatient Treatment, Hx Community Mental Health Tx, Hx Suicide Attempt Denies: Hx Eating Disorder, Hx Panic Disorder, Hx of Violent Episodes Against Others, Hx Substance Abuse - Surgical History Surgery Procedure, Year, and Place: tubal ligation. hysterectomy Hx Anesthesia Reactions: No - Immunization History Date of Tetanus Vaccine: UTD Date of Influenza Vaccine: UTD Infectious Disease History: No Infectious Disease History: Denies: Hx Clostridium Difficile, Hx Hepatitis, Hx Human Immunodeficiency Virus (HIV), Hx of Known/Suspected MRSA, Hx Shingles, Hx Tuberculosis, Hx Known/ Suspected VRE, Hx Known/Suspected VRSA, History Other Infectious Disease, Traveled Outside the [place] in Last 30 Days - Family History Known Family History: Positive: Unknown - Patient is adopted, family history is unknown - Social History Alcohol Use: Rare Hx Substance Use: No Substance Use Type: Reports: None Substance Use Comment - Amount & Last Used: rx'd norco 5/325 q4h prn chronic pain Hx Tobacco Use: No Smoking Status (MU): Former Smoker Type: Cigarettes Amount Used/How Often: 1/2 PPD for 10 years Have You Smoked in the Last Year: No Review of Systems Negative: Skin Diaphoresis Negative: Chest Pain Positive: Shortness Of Breath Positive: Nausea Positive: Other - Left clavicle pain Positive: Syncope - Near All Other Systems Reviewed And Are Negative: Yes Physical Exam - Summary Physical Exam Summary: VITAL SIGNS: Reviewed. GENERAL: Patient is a well-developed and nourished FEMALE who is lying comfortable in the stretcher. Patient is not in any acute respiratory distress. HEAD AND FACE: No signs of trauma. No ecchymosis, hematomas or skull depressions. No sinus tenderness. EYES: PERRLA, EOMI x 2, No injected conjunctiva, no nystagmus. EARS: Hearing grossly intact. Ear canals and tympanic membranes are within normal limits. MOUTH: Oropharynx within normal limits. NECK: Supple, trachea is midline, no adenopathy, no JVD, no carotid bruit, no c- spine tenderness, neck with full ROM. CHEST: Symmetric. Reproducible pain along left clavicle. LUNGS: Clear to auscultation bilaterally. No wheezing or crackles. CVS: Regular rate and rhythm, S1 and S2 present, no murmurs or gallops appreciated. ABDOMEN: Soft, non-tender. No signs of distention. No rebound no guarding, and no masses palpated. Bowel sounds are normal. EXTREMITIES: FROM in all major joints, no edema, no cyanosis or clubbing. NEURO: Alert and oriented x 3. No acute neurological deficits. Speech is normal and follows commands. SKIN: Dry and warm Triage Information Reviewed: Yes Vital Signs On Initial Exam: Initial Vitals Temp Pulse Resp BP Pulse Ox 98.7 F 81 20 126/79 99 06/24/18 15:48 06/24/18 15:48 06/24/18 15:48 06/24/18 15:48 06/24/18 15:48 Vital Signs Reviewed: Yes Diagnostics - Vital Signs Vital Signs Temp Pulse Resp BP Pulse Ox 06/24/18 15:48 98.7 F 81 20 126/79 99 - Laboratory Result Diagrams: 06/24/18 18:06 06/24/18 18:06 Lab Statement: Any lab studies that have been ordered have been reviewed, and results considered in the medical decision making process. - Radiology CXR Radiology Interpretation Completed By: Radiologist Summary of Radiographic Findings: NO ACTIVE CARDIOPULMONARY DISEASE IS NOTED. ED physician reviewed radiology report. - EKG 16:01 Cardiac Rate: NL - 72 bpm EKG Rhythm: Sinus Rhythm ST Segment: Normal EKG Comparison: No Significant Change - As compared to 06/24/18 Summary of EKG Findings: T wave inversions in V1-V3 Re-Evaluation - Re-Evaluation First Eval Re-Evaluation Time: 20:20 Change: Unchanged Comment: Pt requests Tylenol for her headache. She refuses oral Atavan. Chest Pain Course/Dx - Course Assessment/Plan: Pt is a 47 y/o female who presents to the ED c/o clavicle pain. She has had left clavicle pain for the past 2 months, which has worsened over the past 2 days. Pt had a doctors appointment today, and was sent here because of her EKG results. She does heavy lifting at work, which exacerbates the pain. Pt denies any trauma to the area. She c/o SOB, nausea, and near- syncope today. Pt denies any CP or diaphoresis. Ibuprofen alleviates the pain. The pain is currently rates as a 7/10 in severity. Pt has DM and epilepsy, and her last seizure was about 6 weeks ago. Blood work without any significant abnormality except for glucose of 179, troponin 0.00, and d-dimer is less than 200 therefore have no suspicion for a PE. Urinalysis is negative for UTI. Chest x-ray impression: No acute pathology. In the ED course the patient was given DuoNeb since her menstrual. Patient has history of COPD. After these medications the symptoms have significantly improved. I discussed all the findings and test results with the patient. Patient was instructed to return to the emergency room immediately if any of the symptoms return or worsens. Plan of care was discussed with the patient and understands and agrees. All questions were answered at patient satisfaction. There were no further complaints or concerns. Lung exam before discharge: CTA B/L. Good air exchange. No wheezing or crackles heard. CVS: S1 and S2 present. No murmurs appreciated. Patient is alert and oriented x 3. Patient is hemodynamically stable. Patient will be discharged home with follow up PCP in the next 2-3 days - Diagnoses Provider Diagnoses: COPD (chronic obstructive pulmonary disease), Atypical chest pain Discharge - Sign-Out/Discharge Documenting (check all that apply): Patient Departure - Discharge - Discharge Plan Condition: Stable Disposition: HOME Prescriptions: Albuterol 2.5MG/3ML (0.083%)* [Ventolin 2.5 MG/3 ML NEB.JESSICA*] 2.5 mg INH Q6H PRN #1 box PRN Reason: Shortness Of Breath Albuterol HFA INHALER* [Ventolin HFA Inhaler*] 1 puff INH Q4H PRN #1 mdi PRN Reason: Shortness Of Breath Patient Education Materials: Chest Pain (ED), COPD (Chronic Obstructive Pulmonary Disease) (ED) Referrals: Jennifer Dietrich MD [Primary Care Provider] - 3 Days Additional Instructions: RETURN TO THE ED WITH ANY NEW OR WORSENING SYMPTOMS. - Billing Disposition and Condition Condition: STABLE Disposition: Home - Attestation Statements Document Initiated by Scribe: Yes Documenting Scribe: Karon Willoughby Provider For Whom Nicky is Documenting (Include Credential): Kirk Munguia MD Scribe Attestation: Karon Guajardo, scribed for Kirk Munguia MD on 06/24/18 at 2122. Scribe Documentation Reviewed: Yes Provider Attestation: The documentation as recorded by the Karon thacker accurately reflects the service I personally performed and the decisions made by Kirk fish MD Status of Scribe Document: Viewed
[2018-06-24 18:16] LABS: ABS Basophils 0 10^3/ul (0-0.2); ABS Eosinophils 0.2 10^3/ul (0-0.6); ABS Lymphocytes 3.1 10^3/ul (1.0-4.8); ABS Monocytes 0.4 10^3/ul (0-0.8); ABS Neutrophils 4.4 10^3/ul (1.5-7.7); ABS Nucleated RBC 0 10^3/ul; Eosinophil % 2.2 %; Hematocrit 43 % (35-47); Hemoglobin 15.1 g/dl (12.0-16.0); Lymphocyte % 37.6 %; Mean Corpuscular HGB Conc 35 g/dl (31-36); Mean Corpuscular Hemoglobin 29 pg (27-31); Mean Corpuscular Volume 84 fL (80-97); Mean Platelet Volume 6.8 fL (7.4-10.4); Nucleated Red Blood Cells % 0; Platelet Count 233 10^3/ul (150-450); Red Blood Count 5.13 10^6/ul (4.00-5.40); Red Cell Distribution Width 13 % (10.5-15); White Blood Count 8.1 10^3/ul (3.5-10.8)
[2018-06-24 18:26] LABS: Urine Appearance Cloudy; Urine Blood Negative (Negative); Urine Color Yellow; Urine Ketones Negative (Negative); Urine Protein Negative (Negative); Urine Specific Gravity 1.016 (1.010-1.030); Urine Urobilinogen Negative (Negative)
[2018-06-24] MEDS ORDERED: Ondansetron INJ* 2 MG/ML VIAL IV ONE (18:35)
[2018-06-24] MEDS ORDERED: methylPREDNISolone 125 MG* 2 ML VIAL IV ONE (20:05)
[2018-06-24] MEDS ORDERED: Albuterol/Ipratropium NEB.SOL* Albuterol 2.5 MG/Ipratropium 0.5 MG 3 ML INH ONE (20:05)
[2018-06-24] MEDS ORDERED: Ketorolac INJ* 30 MG/ML 1 ML VIAL IV PUSH ONE (21:14)
[2018-06-24 21:57] VITALS: BP 120/82
== END 2018-06-24 21:56 | disposition home or self-care (01) ==
LOC: ED 15:46
DX: J44.9 Chronic obstructive pulmonary disease, unspecified (principal); R07.89 Other chest pain; G40.909 Epilepsy, unspecified, not intractable, without status epilepticus; E11.9 Type 2 diabetes mellitus without complications; Z87.891 Personal history of nicotine dependence; Z79.84 Long term (current) use of oral hypoglycemic drugs
CPT/HCPCS: 36415; 71045; 80053; 81003; 82550; 82553; 83605; 83735; 83880; 84443; 84484; 84702; 85025; 85379; 85730; 93005; 96361; 96374; 96375; 99284; A9270-GY; J1885; J2405; J2930

== ENCOUNTER 2018-07-25 14:50 | Emergency (ER) | payer MEDICARE ==
[2018-07-25 15:04] VITALS: BP 145/75
--- NOTE | 2018-07-25 15:11 | UC ---
UC General HPI - HPI Summary HPI Summary: PAIN INSIDE l EAR X 2 WEEKS AFTER SHE ACCIDENTALLY SCRATCHED THE CANAL REMOVING DRY SKIN. NO DRAINAGE. NO FEVER OR URI. - History of Current Complaint Chief Complaint: UCEar Stated Complaint: LEFT EAR PAIN Time Seen by Provider: 07/25/18 15:04 Hx Obtained From: Patient Hx Last Menstrual Period: 04/08/16 Onset/Duration: Gradual Onset Timing: Constant Pain Intensity: 6 Associated Signs & Symptoms: Negative: Fever, Headache - Allergy/Home Medications Allergies/Adverse Reactions: Allergies Allergy/AdvReac Type Severity Reaction Status Date / Time cinnamon Allergy Unknown Verified 07/25/18 15:05 Reaction Details codeine Allergy Nausea And Verified 07/25/18 15:05 Vomiting morphine Allergy Anaphylatic Verified 07/25/18 15:05 Shock oxycodone Allergy Dizziness Verified 07/25/18 15:05 pioglitazone [From Actos] Allergy Anaphylatic Verified 07/25/18 15:05 Shock zolpidem [From Ambien] Allergy See Comment Verified 07/25/18 15:05 Home Medications: Home Medications Insulin GLARGINE(*) [Lantus(*)] 30 units SUBCUT Q12H 07/25/18 [History Confirmed 07/25/18] PMH/Surg Hx/FS Hx/Imm Hx Endocrine History: Diabetes Cardiovascular History: Hypertension Neurological History: Migraine Psychological History: Depression, Bipolar Disorder Other History Of: Negative For: Anticoagulant Therapy - Surgical History Surgical History: Yes Surgery Procedure, Year, and Place: tubal ligation. hysterectomy - Family History Known Family History: Positive: Unknown - Patient is adopted, family history is unknown - Social History Alcohol Use: Rare Substance Use Type: None Substance Use Comment - Amount & Last Used: rx'd norco 5/325 q4h prn chronic pain Smoking Status (MU): Former Smoker Type: Cigarettes Amount Used/How Often: 1/2 PPD for 10 years Have You Smoked in the Last Year: No When Did the Patient Quit Smoking/Using Tobacco: 23 years Household Exposure Type: Cigarettes - Immunization History Most Recent Influenza Vaccination: 07/2015 Most Recent Tetanus Shot: N/A Most Recent Pneumonia Vaccination: july 2015 Review of Systems All Other Systems Reviewed And Are Negative: Yes Constitutional: Positive: Negative Skin: Positive: Negative Eyes: Positive: Negative ENT: Positive: Ear Ache Respiratory: Positive: Negative Cardiovascular: Positive: Negative Gastrointestinal: Positive: Negative Genitourinary: Positive: Negative Motor: Positive: Negative Neurovascular: Positive: Negative Musculoskeletal: Positive: Negative Neurological: Positive: Negative Psychological: Positive: Negative Physical Exam Triage Information Reviewed: Yes Appearance: Well-Appearing Vital Signs: Initial Vital Signs Temp 97.5 F 07/25/18 15:02 Pulse 109 07/25/18 15:02 Resp 21 07/25/18 15:02 BP 145/75 07/25/18 15:02 Pulse Ox 99 07/25/18 15:02 Vital Signs Reviewed: Yes Eyes: Positive: Conjunctiva Clear ENT: Positive: Pharynx normal, TMs normal, Other - R CANAL IS CLEAR, L IS MILDLY SWOLLEN AND HAS PAIN ON AURICULAR TUG. NO AURICULAR ADENOPATHY OR MASTOID TENDERNESS.. Negative: Nasal congestion, Nasal drainage Neck: Positive: Supple, Nontender, No Lymphadenopathy Respiratory: Positive: Lungs clear, Normal breath sounds Cardiovascular: Positive: RRR, No Murmur Abdomen Description: Positive: Nontender, No Organomegaly, Soft Bowel Sounds: Positive: Present Musculoskeletal: Positive: ROM Intact Neurological: Positive: Alert Psychological: Positive: Age Appropriate Behavior Skin Exam: Normal Course/Dx - Diagnoses Provider Diagnosis: Otitis externa, left Discharge - Sign-Out/Discharge Documenting (check all that apply): Patient Departure All imaging exams completed and their final reports reviewed: No Studies - Discharge Plan Condition: Stable Disposition: HOME Prescriptions: Ciproflox/Dexameth OTIC.SUSP* [Ciprodex OTIC.SUSP*] 4 drop .SEE ORDER BID 7 Days #1 btl Patient Education Materials: Otitis Externa (ED) Referrals: Jennifer Dietrich MD [Primary Care Provider] - - Billing Disposition and Condition Condition: STABLE Disposition: Home - Attestation Statements Provider Attestation: I was available for consult. This patient was seen by the SHAKILA. The patient was not presented to , seen by or examined by [facility] Rita Balbuena MD
== END 2018-07-25 15:22 | disposition home or self-care (01) ==
LOC: UCCORT 14:50
DX: H60.92 Unspecified otitis externa, left ear (principal); Z88.5 Allergy status to narcotic agent; Z88.8 Allergy status to other drugs, medicaments and biological substances; E11.9 Type 2 diabetes mellitus without complications; Z79.4 Long term (current) use of insulin; I10 Essential (primary) hypertension; Z87.891 Personal history of nicotine dependence
CPT/HCPCS: 99212; G0463

== ENCOUNTER 2018-11-30 11:14 | Emergency (ER) | payer MEDICARE ==
[2018-11-30 11:23] VITALS: BP 140/90
--- NOTE | 2018-11-30 11:35 | UC ---
General HPI - HPI Summary HPI Summary: Here with partner - woke up yesterday morning with pain in between her shoulder blades. No CP or SOB. Poorly controlled diabetic. [employer] as a [employer] and is now taking care of her grandmother and has been cleaning up her house getting it ready for her to return from the hospital. Her Grandmother is a hoarder and needed to do heavy lifting to organize. Has not taken any ibuprofen - stopped about a month ago. Has issues with chronic pain in the past. Meds: reviewed - History of Current Complaint Chief Complaint: UCBackPain Stated Complaint: UPPER BACK PAIN BETWEEN SHOULDER BLADES Time Seen by Provider: 11/30/18 11:20 Hx Last Menstrual Period: 04/08/16 Pain Intensity: 7 - Allergy/Home Medications Allergies/Adverse Reactions: Allergies Allergy/AdvReac Type Severity Reaction Status Date / Time cinnamon Allergy Unknown Verified 11/30/18 11:24 Reaction Details codeine Allergy Nausea And Verified 11/30/18 11:24 Vomiting morphine Allergy Anaphylatic Verified 11/30/18 11:24 Shock oxycodone Allergy Dizziness Verified 11/30/18 11:24 pioglitazone [From Actos] Allergy Anaphylatic Verified 11/30/18 11:24 Shock zolpidem [From Ambien] Allergy See Comment Verified 11/30/18 11:24 Home Medications: Home Medications Acetaminophen TAB* [Tylenol TAB*] 650 mg PO Q4H PRN 11/30/18 [History Confirmed 11/30/18] PMH/Surg Hx/FS Hx/Imm Hx Previously Healthy: Yes Endocrine History: Diabetes Respiratory History: COPD Other History Of: Negative For: Anticoagulant Therapy - Surgical History Surgical History: Yes Surgery Procedure, Year, and Place: tubal ligation. hysterectomy - Family History Known Family History: Positive: Unknown - Patient is adopted, family history is unknown - Social History Alcohol Use: Occasionally Substance Use Type: None Substance Use Comment - Amount & Last Used: rx'd norco 5/325 q4h prn chronic pain Smoking Status (MU): Former Smoker Type: Cigarettes Amount Used/How Often: 1/2 PPD for 10 years Have You Smoked in the Last Year: No When Did the Patient Quit Smoking/Using Tobacco: 24 years Household Exposure Type: Cigarettes - Immunization History Most Recent Influenza Vaccination: 07/2015 Most Recent Tetanus Shot: N/A Most Recent Pneumonia Vaccination: july 2015 Review of Systems All Other Systems Reviewed And Are Negative: Yes Physical Exam Triage Information Reviewed: Yes Vital Signs: Initial Vital Signs Temp 97.7 F 11/30/18 11:19 Pulse 75 11/30/18 11:19 Resp 16 11/30/18 11:19 BP 140/90 11/30/18 11:19 Pulse Ox 98 11/30/18 11:19 Vital Signs Reviewed: Yes Musculoskeletal: Positive: Other: - spinous process tenderness over upper thoracic spine. No paraspinal tenderness. Pain with palpation. No pain in cervical or lumbar region. Diagnostics - Radiology THoracic spine Radiology Interpretation Completed By: Radiologist Summary of Radiographic Findings: NO fracture Course/Dx - Course Course Of Treatment: This is a 47 yr old with PMhx of DM who presents with thoracic upper back pain Assessment THoracic spine: negative for fracture Plan REcommend Naproxen 2x/day for 1 week - take with food (do NOT take ibuprofen while taking naproxen) Flexeril as needed for muscle spasm If pain persists, or worsens recommend follow up with your primary care provider or return to urgent care Avoid heavy lifting Increase activity as tolerated - Diagnoses Provider Diagnosis: Strain of thoracic spine Discharge - Sign-Out/Discharge Documenting (check all that apply): Patient Departure All imaging exams completed and their final reports reviewed: Yes - Discharge Plan Condition: Good Disposition: HOME Prescriptions: Cyclobenzaprine TAB* [Flexeril 10 MG TAB*] 10 mg PO TID PRN #20 tab PRN Reason: Spasms Naproxen [Naproxen 500 mg tab] 500 mg PO BID #14 tablet. Patient Education Materials: Thoracic Back Strain (ED) Referrals: Jennifer Dietrich MD [Primary Care Provider] - Additional Instructions: REcommend Naproxen 2x/day for 1 week - take with food (do NOT take ibuprofen while taking naproxen) Flexeril as needed for muscle spasm If pain persists, or worsens recommend follow up with your primary care provider or return to urgent care Avoid heavy lifting Increase activity as tolerated - Billing Disposition and Condition Condition: GOOD Disposition: Home
== END 2018-11-30 12:43 | disposition home or self-care (01) ==
LOC: UCEAST 11:14
DX: S29.012A Strain of muscle and tendon of back wall of thorax, initial encounter (principal); E11.9 Type 2 diabetes mellitus without complications; J44.9 Chronic obstructive pulmonary disease, unspecified; G89.29 Other chronic pain; Z88.5 Allergy status to narcotic agent; Z91.02 Food additives allergy status; Z88.8 Allergy status to other drugs, medicaments and biological substances; Z87.891 Personal history of nicotine dependence; X58.XXXA Exposure to other specified factors, initial encounter; Y92.9 Unspecified place or not applicable
CPT/HCPCS: 72070; 99212; G0463

== ENCOUNTER 2018-12-27 20:34 | Emergency (ER) | payer MEDICARE ==
[2018-12-27] MEDS ORDERED: NS 0.9% 1000 ML** 1,000 ML IV ONE (22:22)
[2018-12-27] MEDS ORDERED: Ketorolac INJ* 30 MG/ML 1 ML VIAL IV PUSH ONE (22:22)
[2018-12-27] MEDS ORDERED: Ondansetron INJ* 2 MG/ML VIAL IV ONE (22:22)
[2018-12-27 22:42] LABS: ABS Lymphocytes 1.1 10^3/ul (1.0-4.8); ABS Monocytes 0.4 10^3/ul (0-0.8); ABS Neutrophils 3.7 10^3/ul (1.5-7.7); Eosinophil % 0.7 %; Hematocrit 43 % (35-47); Hemoglobin 14.9 g/dL (12.0-16.0); Lymphocyte % 20.6 %; Mean Corpuscular HGB Conc 35 g/dL (31-36); Mean Corpuscular Hemoglobin 29 pg (27-31); Mean Corpuscular Volume 84 fL (80-97); Mean Platelet Volume 6.7 fL (7.4-10.4); Nucleated Red Blood Cells % 0.1; Platelet Count 171 10^3/uL (150-450); Red Blood Count 5.12 10^6 /uL (3.70-4.87); Red Cell Distribution Width 13 % (10-15); White Blood Count 5.3 10^3/uL (3.5-10.8)
[2018-12-27 22:58] LABS: Albumin 4.1 g/dL (3.2-5.2); Albumin/Globulin Ratio 1.4 (1-3); BUN/Creatinine Ratio 14.1 (8-20); C Reactive Protein 114.25 mg/L (<8.01); EGFR African American 87.1 (>60); Globulin 2.9 g/dL (2-4); Potassium 3.4 mmol/L (3.5-5.0); Total Bilirubin 0.6 mg/dL (0.2-1.0)
[2018-12-27 23:49] LABS: Urine Appearance Cloudy; Urine Bilirubin Negative (Negative); Urine Blood Negative (Negative); Urine Color Yellow; Urine Glucose 2+(150 mg/dL) (Negative); Urine Ketones Trace (Negative); Urine Nitrite Negative (Negative); Urine Protein Negative (Negative); Urine Specific Gravity 1.019 (1.010-1.030); Urine Urobilinogen Negative (Negative)
--- NOTE | 2018-12-28 | ED ---
GI/ HPI - HPI Summary HPI Summary: 48-year-old female presents with epigastric pain for the past couple days. States every time she sneezes or moves she has severe pain. She admits to nausea vomiting. She admits to decreased appetite. No diarrhea constipation. Denies any blood in stool. Has never had this pain before. States that has felt like has had a fever. No chest pain or shortness breath. No cough. She states that food makes the pain worse. Has a history of diabetes. - History of Current Complaint Chief Complaint: EDAbdPain Time Seen by Provider: 12/27/18 22:17 Stated Complaint: REALLY BAD STOMACH PAINS PER PT Hx Last Menstrual Period: 04/08/16 Pain Intensity: 8 - Additional Pertinent History Primary Care Physician: GIOVANA - Allergy/Home Medications Allergies/Adverse Reactions: Allergies Allergy/AdvReac Type Severity Reaction Status Date / Time cinnamon Allergy Unknown Verified 12/27/18 20:42 Reaction Details codeine Allergy Nausea And Verified 12/27/18 20:42 Vomiting morphine Allergy Anaphylatic Verified 12/27/18 20:42 Shock oxycodone Allergy Dizziness Verified 12/27/18 20:42 pioglitazone [From Actos] Allergy Anaphylatic Verified 12/27/18 20:42 Shock zolpidem [From Ambien] Allergy See Comment Verified 12/27/18 20:42 PMH/Surg Hx/FS Hx/Imm Hx Endocrine/Hematology History: Reports: Hx Diabetes - TYPE 2 - metformin, recently started januvia Denies: Hx Anticoagulant Therapy, Hx Thyroid Disease Cardiovascular History: Reports: Hx Angina Denies: Hx Atrial Fibrillation, Hx Congestive Heart Failure, Hx Deep Vein Thrombosis, Hx Hypotension, Hx Hypertension, Hx Myocardial Infarction, Hx Pacemaker/ICD, Hx Valvular Heart Disease Respiratory History: Reports: Hx Asthma, Hx Chronic Obstructive Pulmonary Disease (COPD), Hx Sleep Apnea Denies: Hx Pleural Effusion, Hx Pulmonary Edema, Hx Pulmonary Embolism GI History: Reports: Other GI Disorders - has had GI bleed d/t hemorrhoids Denies: Hx Ulcer History: Reports: Other Problems/Disorders - ovarian cysts Denies: Hx Dialysis, Hx Renal Disease Musculoskeletal History: Reports: Hx Back Problems - cervical arthritis, Other Musculoskeletal History - OBESITY Denies: Hx Arthritis, Hx Osteoporosis Sensory History: Denies: Hx Hearing Aid Neurological History: Reports: Hx Headaches, Hx Migraine, Hx Seizures, Other Neuro Impairments/Disorders - HEAD INJURY, CONCUSSION X 2 Denies: Hx Dementia, Hx Developmental Delay, Hx Nerve Disease, Hx Spinal Cord Injury, Hx Transient Ischemic Attacks (TIA) Psychiatric History: Reports: Hx Depression, Hx Inpatient Treatment, Hx Community Mental Health Tx, Hx Suicide Attempt Denies: Hx Eating Disorder, Hx Panic Disorder, Hx of Violent Episodes Against Others, Hx Substance Abuse - Surgical History Surgery Procedure, Year, and Place: tubal ligation. hysterectomy Hx Anesthesia Reactions: No - Immunization History Date of Tetanus Vaccine: UTD Date of Influenza Vaccine: UTD Infectious Disease History: No Infectious Disease History: Reports: Hx of Known/Suspected MRSA - several years ago, History Other Infectious Disease Denies: Hx Clostridium Difficile, Hx Hepatitis, Hx Human Immunodeficiency Virus (HIV), Hx Shingles, Hx Tuberculosis, Hx Known/Suspected VRE, Hx Known/ Suspected VRSA, Traveled Outside the [place] in Last 30 Days - Family History Known Family History: Positive: Unknown - Patient is adopted, family history is unknown - Social History Alcohol Use: Occasionally Hx Substance Use: No Substance Use Type: Reports: None Substance Use Comment - Amount & Last Used: rx'd norco 5/325 q4h prn chronic pain Hx Tobacco Use: No Smoking Status (MU): Former Smoker Type: Cigarettes Amount Used/How Often: 1/2 PPD for 10 years Have You Smoked in the Last Year: No Review of Systems Negative: Fever Negative: Chest Pain Negative: Shortness Of Breath Positive: Abdominal Pain, Vomiting, Nausea. Negative: Diarrhea All Other Systems Reviewed And Are Negative: Yes Physical Exam Triage Information Reviewed: Yes Vital Signs On Initial Exam: Initial Vitals Temp Pulse Resp BP Pulse Ox 100 F 108 18 165/93 97 12/27/18 20:40 12/27/18 20:40 12/27/18 20:40 12/27/18 20:40 12/27/18 20:40 Vital Signs Reviewed: Yes Appearance: Positive: Well-Appearing Skin: Positive: Warm, Dry Head/Face: Positive: Normal Head/Face Inspection Eyes: Positive: Normal, Conjunctiva Clear ENT: Positive: Pharynx normal Respiratory/Lung Sounds: Positive: Clear to Auscultation, Breath Sounds Present Cardiovascular: Positive: Normal, RRR Abdomen Description: Positive: Soft, Other: - tenderness epigastric Bowel Sounds: Positive: Present Musculoskeletal: Positive: Normal Neurological: Positive: Normal Psychiatric: Positive: Normal Diagnostics - Vital Signs Vital Signs Temp Pulse Resp BP Pulse Ox 12/27/18 20:40 100 F 108 18 165/93 97 - Laboratory Lab Results: Lab Results 12/27/18 12/27/18 12/27/18 Range/Units 22:34 22:34 22:34 WBC 5.3 (3.5-10.8) 10^3/uL RBC 5.12 H (3.70-4.87) 10^6 /uL Hgb 14.9 (12.0-16.0) g/dL Hct 43 (35-47) % MCV 84 (80-97) fL MCH 29 (27-31) pg MCHC 35 (31-36) g/dL RDW 13 (10-15) % Plt Count 171 (150-450) 10^3/uL MPV 6.7 L (7.4-10.4) fL Neut % (Auto) 70.7 % Lymph % (Auto) 20.6 % [place] % (Auto) 7.1 % Eos % (Auto) 0.7 % Baso % (Auto) 0.9 % Absolute Neuts (auto) 3.7 (1.5-7.7) 10^3/ul Absolute Lymphs (auto) 1.1 (1.0-4.8) 10^3/ul Absolute Monos (auto) 0.4 (0-0.8) 10^3/ul Absolute Eos (auto) 0.0 (0-0.6) 10^3/ul Absolute Basos (auto) 0.0 (0-0.2) 10^3/ul Absolute Nucleated RBC 0.0 10^3/ul Nucleated RBC % 0.1 Sodium 135 (135-145) mmol/L Potassium 3.4 L (3.5-5.0) mmol/L Chloride 104 (101-111) mmol/L Carbon Dioxide 22 (22-32) mmol/L Anion Gap 9 (2-11) mmol/L BUN 12 (6-24) mg/dL Creatinine 0.85 (0.51-0.95) mg/dL Est GFR ( Amer) 87.1 (>60) Est GFR (Non-Af Amer) 72.0 (>60) BUN/Creatinine Ratio 14.1 (8-20) Glucose 251 H (70-100) mg/dL Lactic Acid 2.1 H* (0.5-2.0) mmol/L Calcium 9.0 (8.6-10.3) mg/dL Total Bilirubin 0.60 (0.2-1.0) mg/dL AST 102 H (13-39) U/L ALT 99 H (7-52) U/L Alkaline Phosphatase 170 H (34-104) U/L C-Reactive Protein 114.25 H (<8.01) mg/L Total Protein 7.0 (6.4-8.9) g/dL Albumin 4.1 (3.2-5.2) g/dL Globulin 2.9 (2-4) g/dL Albumin/Globulin Ratio 1.4 (1-3) Lipase 51 (11.0-82.0) U/L Urine Color Urine Appearance Urine pH (5-9) Ur Specific [place] (1.010-1.030) Urine Protein (Negative) Urine Ketones (Negative) Urine Blood (Negative) Urine Nitrate (Negative) Urine Bilirubin (Negative) Urine Urobilinogen (Negative) Ur Leukocyte Esterase (Negative) Urine Glucose (Negative) 12/27/18 Range/Units 23:37 WBC (3.5-10.8) 10^3/uL RBC (3.70-4.87) 10^6 /uL Hgb (12.0-16.0) g/dL Hct (35-47) % MCV (80-97) fL MCH (27-31) pg MCHC (31-36) g/dL RDW (10-15) % Plt Count (150-450) 10^3/uL MPV (7.4-10.4) fL Neut % (Auto) % Lymph % (Auto) % [place] % (Auto) % Eos % (Auto) % Baso % (Auto) % Absolute Neuts (auto) (1.5-7.7) 10^3/ul Absolute Lymphs (auto) (1.0-4.8) 10^3/ul Absolute Monos (auto) (0-0.8) 10^3/ul Absolute Eos (auto) (0-0.6) 10^3/ul Absolute Basos (auto) (0-0.2) 10^3/ul Absolute Nucleated RBC 10^3/ul Nucleated RBC % Sodium (135-145) mmol/L Potassium (3.5-5.0) mmol/L Chloride (101-111) mmol/L Carbon Dioxide (22-32) mmol/L Anion Gap (2-11) mmol/L BUN (6-24) mg/dL Creatinine (0.51-0.95) mg/dL Est GFR ( Amer) (>60) Est GFR (Non-Af Amer) (>60) BUN/Creatinine Ratio (8-20) Glucose (70-100) mg/dL Lactic Acid (0.5-2.0) mmol/L Calcium (8.6-10.3) mg/dL Total Bilirubin (0.2-1.0) mg/dL AST (13-39) U/L ALT (7-52) U/L Alkaline Phosphatase (34-104) U/L C-Reactive Protein (<8.01) mg/L Total Protein (6.4-8.9) g/dL Albumin (3.2-5.2) g/dL Globulin (2-4) g/dL Albumin/Globulin Ratio (1-3) Lipase (11.0-82.0) U/L Urine Color Yellow Urine Appearance Cloudy Urine pH 8.0 (5-9) Ur Specific [place] 1.019 (1.010-1.030) Urine Protein Negative (Negative) Urine Ketones Trace A (Negative) Urine Blood Negative (Negative) Urine Nitrate Negative (Negative) Urine Bilirubin Negative (Negative) Urine Urobilinogen Negative (Negative) Ur Leukocyte Esterase Negative (Negative) Urine Glucose 2+(150 mg/dl) A (Negative) Result Diagrams: 12/27/18 22:34 12/27/18 22:34 Lab Statement: Any lab studies that have been ordered have been reviewed, and results considered in the medical decision making process. - CT abd CT Interpretation Completed By: Radiologist Summary of CT Findings: IMPRESSION: No CT findings to correlate with patient's symptomatology. - Ultrasound No standard instances Ultrasound Interpretation Completed By: Radiologist Summary of Ultrasound Findings: IMPRESSION: 1. No sonographic findings to correlate with patient's symptomatology. 2. Hepatic steatosis and associated hepatomegaly. Re-Evaluation - Re-Evaluation First Eval Re-Evaluation Time: 00:04 Change: Improved Comment: feeling better Second Eval Re-Evaluation Time: 01:48 Comment: discussed results GIGU Course/Dx - Course Course Of Treatment: 48-year-old female presents with epigastric pain for the past couple days. States every time she sneezes or moves she has severe pain. She admits to nausea vomiting. She admits to decreased appetite. No diarrhea constipation. Denies any blood in stool. Has never had this pain before. States that has felt like has had a fever. No chest pain or shortness breath. No cough. She states that food makes the pain worse. Has a history of diabetes. On exam tenderness epigastric. wbc normal. CRP elevated. LFTs are elevated. Gallbladder ultrasound shows hepatomegaly. CT shows no acute findings. discussed could be gastritis we'll treat with omprazole and zofran. told no improvement follow up gi. patient understands agrees with plan. - Diagnoses Differential Diagnoses - Female: Gall Bladder Disease, Gastroenteritis (Viral), Urinary Tract Infection Provider Diagnoses: Abdominal pain Discharge - Sign-Out/Discharge Documenting (check all that apply): Patient Departure Patient Received Moderate/Deep Sedation with Procedure: No - Discharge Plan Condition: Good Disposition: HOME Prescriptions: Omeprazole 20 mg PO DAILY #14 capsule. Ondansetron ODT TAB* [Zofran 4 MG Odt TAB*] 4 mg PO Q6H PRN #20 tab.odt PRN Reason: Nausea Patient Education Materials: Epigastric Pain (ED) Referrals: Jennifer Dietrich MD [Primary Care Provider] - Additional Instructions: Take omeprazole once a day take zofran every 6 hours as needed for nausea Follow up with GI if no improvement Return to ED if develop any new or worsening symptoms - Billing Disposition and Condition Condition: GOOD Disposition: Home
[2018-12-28] MEDS ORDERED: Iodixanol* (CONTRAST) 320 MG/ML 100 ML SDV IV ONE (00:50)
[2018-12-28] MEDS ORDERED: Ketorolac INJ* 30 MG/ML 1 ML VIAL IV PUSH ONE (00:54)
[2018-12-28] MEDS ORDERED: NS 0.9% 1000 ML** 1,000 ML IV ONE (00:54)
[2018-12-28] MEDS ORDERED: Pantoprazole IV* 40 MG IV ONE (01:22)
[2018-12-28 01:24] VITALS: BP 136/78
== END 2018-12-28 01:49 | disposition home or self-care (01) ==
LOC: ED 20:34
DX: R10.13 Epigastric pain (principal); R11.2 Nausea with vomiting, unspecified; K76.0 Fatty (change of) liver, not elsewhere classified; R16.0 Hepatomegaly, not elsewhere classified; E11.9 Type 2 diabetes mellitus without complications; Z79.84 Long term (current) use of oral hypoglycemic drugs; Z88.5 Allergy status to narcotic agent; Z88.8 Allergy status to other drugs, medicaments and biological substances; Z87.891 Personal history of nicotine dependence
CPT/HCPCS: 36415; 74177; 76705; 80053; 81003; 83605; 83690; 85025; 86140; 87040; 96361; 96374; 96375; 96376; 99284; J1885; J2405; Q9967

== ENCOUNTER 2019-05-15 17:33 | Emergency (ER) | payer MEDICARE ==
--- OUTSIDE RECORDS SUMMARY | 2019-05-15 18:01 | XMS REPORT | Continuity of Care Document ---
:1970 Author Organization [facility] Support Name Relationship Address Phone TATO DAVIS spouse [address] [place] [address] TATO DAVIS spouse [address] [place] [address] Allergies and Intolerances No Allergy Data in the System Medications No Known Medications Medications At Time Of Discharge No data in the system Problems No Data in the system Procedures No data in the system Results Microbiology Results w Susceptibilities Order: CULTURE GROUP A STREP Specimen Source: Swab Body Site: Entire throat (surface region of neck )Cultural Observations:Streptococcus pyogenes (Group A) was NOT [id number] Lab Footnotes:[facility] - [id number] - [address] [place] [address] PABLO Holcomb [id number] Social History Code Code System Social History Description Dates Observed Observation [id number] SNOMED CT Current Smoking Unknown if ever Status smoked UNK AdministrativeGender Sex Assigned At Unknown Vital Signs No data in the system Goals Section No data in the system Health Concerns No data in the systemEncounter Diagnosis Date Code Code System Diagnosis Status J02.0 ICD10 STREPTOCOCCAL PHARYNGITIS Active Advance Directives No Data in the System Encounters Encounter Diagnosis Location Date STREPTOCOCCAL PHARYNGITIS [facility] 04/12/2019 Family History Family history not obtained Functional Status No data in the system Immunizations No data in the system Medical Equipment No data in the system Mental Status No data in the system Assessment and Plan Assessments No data in the systemPlan Of Treatment No data in the systemPending Tests No data in the system Hospital Discharge Instructions No data in the system Reason for Visit No data in the system
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
[2019-05-15] MEDS ORDERED: Fluorescein Sodium TOPICAL* 1 MG TEST STRIP OPHTHALMIC ONE (20:31)
[2019-05-15] MEDS ORDERED: Tetracaine 0.5% OPTH.SOL 4 ML* 1 DROP BTL RIGHT EYE ONE (20:31)
[2019-05-15] MEDS ORDERED: Ketorolac INJ* 30 MG/ML 1 ML VIAL IM ONE (21:50)
[2019-05-15 22:22] VITALS: BP 154/90
== END 2019-05-15 22:22 | disposition home or self-care (01) ==
LOC: ED 17:33
DX: S00.33XA Contusion of nose, initial encounter (principal); W22.8XXA Striking against or struck by other objects, initial encounter; Y93.89 Activity, other specified; Y92.009 Unspecified place in unspecified non-institutional (private) residence as the place of occurrence of the external cause; Y99.0 Civilian activity done for income or pay; E11.9 Type 2 diabetes mellitus without complications; Z79.84 Long term (current) use of oral hypoglycemic drugs; J44.9 Chronic obstructive pulmonary disease, unspecified; Z87.820 Personal history of traumatic brain injury; Z88.5 Allergy status to narcotic agent; Z88.8 Allergy status to other drugs, medicaments and biological substances; Z87.891 Personal history of nicotine dependence
CPT/HCPCS: 70150; 96372; 99281; A9270-GY; J1885